=== PATIENT | female | born 1985 | race African-American/Black ===

== ENCOUNTER 2020-12-19 13:23 | Observation (INO) | payer BC, MEDICAID, SELFPAY ==
--- NOTE | 2020-12-19 17:00 | PC.NURSE ---
Dr Yanes will be in to see patient shortly.
--- NOTE | 2020-12-19 17:33 | OBADM ---
This patient, Michelle Stewart, admitted to the OB room Labor/Delivery/Recovery 118 for observation. Patient/family oriented to hospital policies and general routines including ID bracelet, bed and alarms, visiting hours, pain management, procedures, bathroom and other care routines, personal items, smoking policy, room service/diet, and visiting hours. Patient/Family are encouraged to report perceived risks to care and to ask questions if they do not understand what they are told or what they should do.
--- NOTE | 2020-12-19 18:08 | PM.OBTRLD ---
OB - Triage/Final Diagnosis Visit Information Comments/Additional reasons for admission: I have assessed the risk for this patient, Michelle Stewart, and determined that she would benefit from observation care. Final Diagnosis (1) FGR ( growth retardation): Status: Acute
== END 2020-12-19 18:15 | disposition home or self-care (01) ==
PROVIDERS: Admitting Provider Obstetrics & Gynecology; PCP Nurse Practitioner Family; Visit Provider Obstetrics & Gynecology
DX: O36.5930 Maternal care for other known or suspected poor fetal growth, third trimester, not applicable or unspecified (principal); Z3A.36 36 weeks gestation of pregnancy
CPT/HCPCS: G0378; G0379

== ENCOUNTER 2020-12-27 10:26 | Outpatient (RCR) | payer BC, SELFPAY ==
[2020-11-23 15:11] VITALS: BP 135/81; PULSE 73
[2020-11-29 12:07] VITALS: BP 108/69; PULSE 109
[2020-12-06 11:58] VITALS: BP 121/67; PULSE 70
[2020-12-12 11:42] VITALS: BP 132/70; PULSE 80
[2020-12-19 13:49] VITALS: BP 120/68; PULSE 85
--- NOTE | 2020-12-19 14:56 | PC.NURSE ---
Dr Yanes informed of BPP of 01/08 and Low umbilical cord doppler studies. Will consult M and call me back with further orders.
--- NOTE | 2020-12-19 15:04 | PC.NURSE ---
Dr Yanes phoned back, informed to discharge patient and send patient to [facility] for further testing. Informed Dr Yanes that I need an accepting MD before I can send patient to [facility]. Will call back with further orders.
--- NOTE | 2020-12-19 15:24 | PC.NURSE ---
Dr Yanes called back with further orders, he is waiting for Dr Rodrigues to call him back with a plan. Order for IV and labs ordered.
--- NOTE | 2020-12-19 15:57 | PC.NURSE ---
Patient changed to observation, see Obs adm note.
[2020-12-19 16:06] LABS: Hematocrit 24.4 % (37.0-47.0); Hemoglobin 7.3 g/dL (12.0-15.0); Mean Corpuscular HGB Conc 29.9 g/dl (32-36); Mean Corpuscular Hemoglobin 21.7 pg (26-34); Mean Corpuscular Volume 72.6 fl (80-100); Mean Platelet Volume 12.4 fl (7.4-10.4); Platelet Count Result 261 k/mm3 (150-375); Red Blood Count 3.36 M/mm3 (4.2-5.4); Red Cell Distribution Width 16.5 % (11.5-14.5); White Blood Count 10.7 K/mm3 (4.5-10.0)
[2020-12-19 16:16] LABS: Alanine Aminotransferase 16 U/L (4-35); Albumin Level 3.6 g/dL (3.5-5.1); Alkaline Phosphatase 77 U/L (38-126); Anion Gap 7 mmol/L (8-16); Aspartate Amino Transferase 34 U/L (14-36); Bilirubin,Total 0.3 mg/dL (0.2-1.3); Blood Urea Nitrogen 7 mg/dL (7-17); Calcium 9.3 mg/dL (8.4-10.2); Carbon Dioxide 20 mmol/L (22-30); Chloride 108 mmol/L (98-107); Estimated Glomerular Filt Rate > 60; Glucose 82 mg/dL (65-105); Potassium 4.1 mmol/L (3.4-5.0); Sodium 135 mmol/L (137-145)
[2020-12-20 14:40] VITALS: BP 109/75; PULSE 85
[2020-12-24 10:44] VITALS: BP 124/72; PULSE 96
--- NOTE | ~2020-12-27 | US_ITS ---
EXAMINATION: US OB BPP wo non-stress DATE: 11/29/2020 12:33 CDT INDICATION: IUGR TECHNIQUE: Real-time transabdominal obstetric ultrasound. FINDINGS: No prior studies for comparison. There is a single living fetus in vertex presentation. The placenta is anterior without placenta pre via. cardiac activity and movement is noted with a heart rate of 125 beats per minute. Biophysical profile: breathin of 2 movement: 2 of 2 tone: 2 of 2 Amniotic flud pocket: 2 of 2 Total score: 8 of 8 IMPRESSION: 1. Single living intrauterine in vertex presentation. 2: Total biophysical profile score of 8/8. Reviewed, dictated and finalized at location B.
--- NOTE | ~2020-12-27 | US_ITS ---
EXAMINATION: US OB BPP wo non-stress DATE: 11/23/2020 15:59 INDICATION: Intrauterine growth restriction during TECHNIQUE: Real-time pelvic ultrasound was performed. The interpreting radiologist was not present fo r the study. COMPARISON: None. FINDINGS: There is a single living fetus in breech presentation. The placenta is anterior. heart rate is 130 beats per minute (bpm). Amniotic fluid volume is subjectively normal. Biophysical profile performed by the technologist: breathing (30 sec sustained breathing in 30 minutes): 2 out of 2 movement (3 gross body movements in 30 minutes): 2 out of 2 tone (one episode of xjqwwtt-haviifaqu-lfsdhuc limb movement): 2 out of 2 Amniotic fluid pocket (2 cm): 2 out of 2 Total score: 8 out of 8 IMPRESSION: 1. Single living fetus in breech presentation with heart rate of 130 bpm. 2. Biophysical profile 8 out of 8. Reviewed, dictated and finalized at location A.
--- NOTE | ~2020-12-27 | US_ITS ---
EXAMINATION: US OB BPP wo non-stress DATE: 12/20/2020 12:16 INDICATION: Intrauterine growth restriction. TECHNIQUE: Real-time pelvic ultrasound was performed. COMPARISON: Ultrasound 12/19/2020 FINDINGS: There is a single living fetus in vertex presentation. The placenta is anterior. heart rate is 131 beats per minute (bpm). Biophysical profile performed by the technologist: breathing (30 sec sustained breathing in 30 minutes): 0 out of 2 movement (3 gross body movements in 30 minutes): 2 out of 2 tone (one episode of fwhekja-djsvjeufj-koccdtk limb movement): 2 out of 2 Amniotic fluid pocket (2 cm): 2 out of 2 Total score: 6 out of 8 IMPRESSION: 1. Single living fetus in vertex presentation. 2. Biophysical profile 6 out of 8. Reviewed, dictated and finalized at location A.
--- NOTE | ~2020-12-27 | US_ITS ---
EXAMINATION: US OB BPP wo non-stress DATE: 12/27/2020 12:06 INDICATION: IUGR during third trimester . TECHNIQUE: Real-time pelvic ultrasound was performed. The interpreting radiologist was not present fo r the study. COMPARISON: 12/24/2020 FINDINGS: There is a single living fetus in vertex presentation. The placenta is 141. heart rate is anter ior beats per minute (bpm). Biophysical profile performed by the technologist: breathing (30 sec sustained breathing in 30 minutes): 2 out of 2 movement (3 gross body movements in 30 minutes): 2 out of 2 tone (one episode of yioazhl-yhkjedexs-zovqhfr limb movement): 2 out of 2 Amniotic fluid pocket (2 cm): 2 out of 2 Total score: 8 out of 8 IMPRESSION: 1. Single living fetus in vertex presentation. 2. Biophysical profile 8 out of 8. Reviewed, dictated and finalized at location A.
--- NOTE | ~2020-12-27 | US_ITS ---
EXAMINATION: US OB BPP wo non-stress DATE: 12/24/2020 10:24 INDICATION: Intrauterine growth restriction. Third trimester. TECHNIQUE: Real-time pelvic ultrasound was performed. COMPARISON: Ultrasound 12/20/2020 FINDINGS: There is a single living fetus in vertex presentation. The placenta is anterior. heart rate is 128 beats per minute (bpm). Biophysical profile performed by the technologist: breathing (30 sec sustained breathing in 30 minutes): 2 out of 2 movement (3 gross body movements in 30 minutes): 2 out of 2 tone (one episode of uxyfamr-rnfkaijpc-dhyejwk limb movement): 2 out of 2 Amniotic fluid pocket (2 cm): 2 out of 2 Total score: 8 out of 8 IMPRESSION: 1. Single living fetus in vertex presentation. 2. Biophysical profile 8 out of 8. Reviewed, dictated and finalized at location B.
--- NOTE | ~2020-12-27 | US_ITS ---
EXAMINATION: 1. US OB limited w BPP 2. US umbilical doppler DATE: 12/12/2020 11:35 INDICATION: Intrauterine growth restriction. Third trimester. TECHNIQUE: Real-time pelvic ultrasound was performed. COMPARISON: Ultrasound 12/06/2020 FINDINGS: There is a single living fetus in vertex presentation. The placenta is anterior. heart rate is 133 beats per minute (bpm). The amniotic fluid index is 9.4 cm, which is normal. Biophysical profile performed by the technologist: breathing (30 sec sustained breathing in 30 minutes): 2 out of 2 movement (3 gross body movements in 30 minutes): 2 out of 2 tone (one episode of strlfqp-evxpitgiw-tztglcs limb movement): 2 out of 2 Amniotic fluid pocket (2 cm): 2 out of 2 Total score: 8 out of 8 Umbilical artery pulsed Doppler demonstrates a peak systolic to end-diastolic velocity ratio (S/D rat io) of 2.3 (5th percentile = 2.0, 95th percentile = 3.4). IMPRESSION: 1. Single living fetus in vertex presentation. 2. Biophysical profile 8 out of 8. 3. Normal umbilical artery Doppler. Reviewed, dictated and finalized at location B. IMPRESSION: 1. Single living fetus in vertex presentation. 2. Biophysical profile 8 out of 8. 3. Normal umbilical artery Doppler.
--- NOTE | ~2020-12-27 | US_ITS ---
EXAMINATION: 1. US OB BPP wo non-stress 2. US umbilical doppler DATE: 12/19/2020 14:40 INDICATION: Small for gestational age. Third trimester. TECHNIQUE: Real-time pelvic ultrasound was performed. COMPARISON: Ultrasound 12/12/2020 FINDINGS: There is a single living fetus in vertex presentation. The placenta is anterior. heart rate is 135 beats per minute (bpm). Biophysical profile performed by the technologist: breathing (30 sec sustained breathing in 30 minutes): 0 out of 2 movement (3 gross body movements in 30 minutes): 2 out of 2 tone (one episode of ioojlnj-tikyyaaqt-wmbmqgj limb movement): 2 out of 2 Amniotic fluid pocket (2 cm): 2 out of 2 Total score: 6 out of 8 Umbilical artery pulsed Doppler demonstrates a peak systolic to end-diastolic velocity ratio (S/D rat io) of 1.6 (5th percentile = 2.0, 95th percentile = 3.3). IMPRESSION: 1. Single living fetus in vertex presentation. 2. Biophysical profile 6 out of 8. 3. Abnormally low S/D ratio of the umbilical artery. Reviewed, dictated and finalized at location A. IMPRESSION: 1. Single living fetus in vertex presentation. 2. Biophysical profile 6 out of 8. 3. Abnormally low S/D ratio of the umbilical artery.
--- NOTE | ~2020-12-27 | US_ITS ---
EXAMINATION: US OB BPP wo non-stress, US umbilical doppler EXAM DATE: 12/06/2020 11:26 INDICATION: IUGR. 3rd trimester. TECHNIQUE: Pelvic obstetrical transabdominal sonogram was performed by a technologist. There are mu ltiple grayscale and Doppler images available for interpretation. Umbilical artery doppler obtained. Comparison is made to prior examination from 11/30/2019. FINDINGS: There is a single fetus identified in vertex presentation with a heart rate of 142 beats pe r minute. The placenta is located in the anterior position. There is no sonographic evidence of retr oplacental hemorrhage identified. BIOPHYSICAL PROFILE (performed by the technologist) breathing (30 sec sustained breathing in 30 minutes): 2 out of 2 movement (3 gross body movements in 30 minutes): 2 out of 2 tone (one episode of mzseqlp-flpefdbea-uucqpaz limb movement): 2 out of 2 Amniotic fluid pocket (2 cm): 2 out of 2 Total score: 8 out of 8 UMBILICAL ARTERY DOPPLER Systolic/diastolic ratios obtained as follows: Near baby: 1.9 Mid aspect: 1.9 Near Placenta: 2.3 (The 5th -- 95th percentile range is 2.0 -- 3.4). IMPRESSION: 1. Single fetus with heart rate of 142 bpm. 2. Normal biophysical profile score of 8 out of 8. 3. No elevated umbilical artery Doppler ratios. Reviewed, dictated and finalized at location B. IMPRESSION: 1. Single fetus with heart rate of 142 bpm. 2. Normal biophysical profile score of 8 out of 8. 3. No elevated umbilical artery Doppler ratios.
[2020-12-27 18:34] VITALS: BP 124/63; PULSE 74
== END 2021-01-01 11:49 | disposition home or self-care (01) ==
LOC: ANHOBOP 10:26
PROVIDERS: PCP Nurse Practitioner Family; Visit Provider Obstetrics & Gynecology
DX: O36.5930 Maternal care for other known or suspected poor fetal growth, third trimester, not applicable or unspecified (principal); Z3A.33 33 weeks gestation of pregnancy; Z3A.34 34 weeks gestation of pregnancy; Z3A.35 35 weeks gestation of pregnancy; Z3A.36 36 weeks gestation of pregnancy; Z3A.37 37 weeks gestation of pregnancy
CPT/HCPCS: 36415; 59025; 76815; 76819; 76820; 80053; 85027

== ENCOUNTER 2020-12-29 05:58 | Inpatient (IN) | payer BC, OTHER, SELFPAY ==
[2020-12-29] VITALS (138 sets, daily range): BP systolic 62–174; BP diastolic 42–131; PULSE 65–186; TEMP 36.6–37; O2SAT 84–100; BMI 44.2
--- NOTE | 2020-12-29 06:40 | LDADM ---
This patient, Michelle Stewart, was admitted to Labor/Delivery/Recovery 103 on 12/29/20 at 05:58. Plans for labor, pain management and were discussed with patient. Patient/family oriented to hospital policies and general routines including ID bracelet, bed and alarms, visiting hours, pain management, procedures, bathroom and other care routines, personal items, smoking policy, room service/diet and guest tray routines, security routines, and visiting hours. Patient/Family are encouraged to report perceived risks to care and to ask questions if they do not understand what they are told or what they should do. See OBIX for further documentation.
[2020-12-29 06:41] LABS: Basophils Absolute Auto 0.1 K/mm3 (0.0-0.1); Basophils Percent Auto 0.8 % (0.2-1.2); Eosinophils Percent Auto 0.3 % (0-4.4); Hematocrit 25.8 % (37.0-47.0); Hemoglobin 7.5 g/dL (12.0-15.0); Immature Granulocyte Absolute 0.02 K/mm3 (0.00-0.031); Immature Granulocyte Percent A 0.2 % (0-0.5); Lymphocytes Absolute Auto 1.87 K/mm3 (0.9-3.2); Lymphocytes Percent Auto 21.6 % (18.3-44.2); Mean Corpuscular HGB Conc 29.1 g/dl (32-36); Mean Corpuscular Hemoglobin 21.1 pg (26-34); Mean Corpuscular Volume 72.7 fl (80-100); Mean Platelet Volume 11.1 fl (7.4-10.4); Monocytes Absolute Auto 0.4 K/mm3 (0.1-0.6); Monocytes Percent Auto 4.7 % (2.6-8.5); Neutrophils Absolute Auto 6.3 K/mm3 (1.3-6.7); Neutrophils Percent Auto 72.4 % (45.5-73.1); Platelet Count Result 332 k/mm3 (150-375); Red Blood Count 3.55 M/mm3 (4.2-5.4); Red Cell Distribution Width 16.9 % (11.5-14.5); White Blood Count 8.7 K/mm3 (4.5-10.0)
--- NOTE | 2020-12-29 06:43 | PM.IMHP ---
H&P: HPI History of Present Illness Date/Time: 12/29/20 06:43 35 y/o F at 38weeks presents for IOL per MFM for severe IUGR 8th%efw normal dopplers and normal jeremy. c/b MTHFR, growth restriction, abnormal progesterone, subchorionic hematoma, obesity, HSV2, FAITH, anemia, CIC, and MDD. Chief Complaint: term , severe growth restriction with normal antepartum testing, group B strep positive Elective induction per Maternal- Medicine recommendation Review of Systems Review of Systems: All systems reviewed & are unremarkable except as noted in HPI and below Constitutional: Constitutional: Reports no additional constitutional complaints Eyes: Eyes: Reports no additional eye complaints ENT: Reports system reviewed and no additional complaints, except as documented Cardiovascular: Cardiovascular: Reports no additional cardiovascular complaints Respiratory: Respiratory: Reports no additional respiratory complaints Gastrointestinal: Gastrointestinal: Reports no additional gastrointestinal complaints Genitourinary: Genitourinary: Reports no additional female genitourinary complaints Musculoskeletal: Musculoskeletal: Reports no additional musculoskeletal complaints Integumentary/Breasts: Skin/Breast: Reports system reviewed and no additional complaints, except as docu Neurologic: Reports system reviewed and no additional complaints, except as documented Psychiatric: Psychiatric: Reports no additional psychiatric complaints Endocrine: Endocrine: Reports no additional endocrine complaints Hematologic/Lymphatic: Hematologic/Lymphatic: Reports no additional hematologic/lymphatic complaints Allergic/Immunologic: Allergic/Immunologic: Reports no additional allergic/immunologic complaints [facility] Past Medical History Medical History (Updated 12/29/20 @ 07:13 by Jeffrey Yanes MD) Anemia BV (bacterial vaginosis) Candidiasis of vagina Constipation Degenerative disc disease Depressive disorder FGR ( growth retardation) FAITH (generalized anxiety disorder) GBS (group B streptococcus) infection Heterozygous MTHFR mutation [id number] HSV (herpes simplex virus) infection Obesity Sleep apnea Vaginal delivery 11-23-2005, 40 wks 1. M, 8lbs 2oz, Standard Vaginal Delivery Surgical History Surgical History (Updated 12/29/20 @ 07:15 by Jeffrey Yanes MD) Gastric bypass status for obesity Gastric bypass : 06-03-2015 Family History Family History (Updated 12/29/20 @ 07:16 by Jeffrey Yanes MD) Mother Asthma Other Depression Diabetes mellitus Heart disease Hypertension Social History Social History (Updated 12/29/20 @ 07:17 by Jeffrey Yanes MD) Smoking status: Never smoker Second hand tobacco smoke exposure: No Alcohol intake: never Substance use: never Substance use type: does not use Living arrangements: with family Occupation/Education: occupation Gender identity (if verbalized by the patient): Female Sexual Orientation (if Verbalized by the Patient): Straight or Heterosexual Spiritual care concerns: No Agree to blood products: Yes Meds Home Medications and Allergies Home Medications Medication Instructions Recorded Confirmed Type Linzess 290 mcg PO BID 12/12/20 12/19/20 History PNV cmb#95-ferrous fumarate-FA 1 tablet PO DAILY 12/12/20 12/19/20 History [] acyclovir 800 mg PO DAILY 12/12/20 12/19/20 History ferrous gluconate 324 mg PO DAILY 12/19/20 12/19/20 History Allergies Allergy/AdvReac Type Severity Reaction Status Date / Time Vitamin B12 Allergy Mild Rash Uncoded 12/12/20 10:43 Exam Const: General: cooperative, healthy appearing, comfortable, no acute distress, well developed, alert, awake and Physically active Nutritional Appearance: average body habitus, well nourished and obese Orientation/consciousness: patient oriented x3 HENMT: Head: normal to inspection Eyes: General: appearance normal, b
[2020-12-29 07:07] LABS: Hypochromasia 2+ (NORMAL); Ovalocytes 2+ (NORMAL); Platelet Estimate Adequate (Adequate)
[2020-12-29] MEDS: DINOPROSTONE 10 MG VAG INSERT VAGINAL ×2 (07:16→12:15)
[2020-12-29] MEDS: AMPICILLIN 2 GM/NS 100 ML 2 GM/100 ML BAG IVPB (07:17)
[2020-12-29] MEDS: LACTATED RINGERS 1,000 ML 125 ML IV CONT ×3 (07:17→18:50)
--- NOTE | 2020-12-29 07:27 | WPDHPUPDATE1 ---
History and Physical Update Update Date/Time: 12/29/20 07:27 History and Physical has been reviewed, including an updated exam of the patient. There are NO changes in the patient's condition. Risks, benefits, and alternatives have been discussed and questions answered. Patient agrees to proceed with procedure. 35 y/o F at 38weeks presents for IOL per [facility] for severe IUGR 8th%efw normal dopplers and normal jeremy. c/b MTHFR, growth restriction, abnormal progesterone, subchorionic hematoma, obesity, HSV2, FAITH, anemia, CIC, and MDD. Chief Complaint: term , severe growth restriction with normal antepartum testing, group B strep positive Elective induction per Maternal- Medicine recommendation
--- NOTE | 2020-12-29 07:28 | P.HP_ITS ---
Obstetrics - Admit Note Admission Note: record reviewed. No pertinent additions to the history and/or any subsequent changes in the physical findings that are not consistent with the expected course of the were found. Additions to the history and/or subsequent changes in the physical findings follow. None. 35 y/o F at 38weeks presents for IOL per [facility] for severe IUGR 8th%efw normal dopplers and normal jeremy. c/b MTHFR, growth restriction, abnormal progesterone, subchorionic hematoma, obesity, HSV2, FAITH, anemia, CIC, and MDD. Chief Complaint: term , severe growth restriction with normal antepartum testing, group B strep positive Elective induction per Maternal- Medicine recommendation I explained her condition procedure and risks involved in the risk of shoulder dystocia and hemorrhage as well as a maternal or indications for delivery with risks involved including but not limited to bleeding infection injury to bladder bowel baby pelvic vessels DVT pneumonia wound infection UTI endometritis and the risk of anesthesia and she agrees to proceed.
--- NOTE | 2020-12-29 08:51 | WPDANESEPP ---
Anes - Eval Pre Procedure Procedure: labor epidural Date/Time: 12/29/20 08:51 Surgeon: Joaquín Preop Diagnosis: Pain during labor Pre Op Diagnosis: Induction of Labor Patient Data Age: 35 Gender: F Height: 5 ft 4 in Weight: 117 kg Last Vital Signs Temp 36.6 C 12/29/20 07:30 Pulse 69 12/29/20 08:31 BP 126/61 12/29/20 08:31 Allergies Allergy/AdvReac Type Severity Reaction Status Date / Time Vitamin B12 Allergy Mild Rash Uncoded 12/12/20 10:43 Home Medications Medication Instructions Recorded Confirmed Type Linzess 290 mcg PO BID 12/12/20 12/29/20 History PNV cmb#95-ferrous fumarate-FA 1 tablet PO DAILY 12/12/20 12/29/20 History [] acyclovir 800 mg PO DAILY 12/12/20 12/29/20 History ferrous gluconate 324 mg PO DAILY 12/19/20 12/29/20 History Laboratory Tests 12/29/20 12/29/20 12/29/20 06:21 06:21 06:22 WBC 8.7 K/mm3 K/mm3 (4.5-10.0) RBC 3.55 M/mm3 L M/mm3 (4.2-5.4) Hgb 7.5 g/dL L g/dL (12.0-15.0) Hct 25.8 % L % (37.0-47.0) MCV 72.7 fl L fl (80-100) MCH 21.1 pg L pg (26-34) MCHC 29.1 g/dl L g/dl (32-36) RDW 16.9 % H % (11.5-14.5) Plt Count 332 k/mm3 k/mm3 (150-375) MPV 11.1 fl H fl (7.4-10.4) Immature Gran % (Auto) 0.2 % % (0-0.5) Neut % (Auto) 72.4 % % (45.5-73.1) Lymph % (Auto) 21.6 % % (18.3-44.2) Harding % (Auto) 4.7 % % (2.6-8.5) Eos % (Auto) 0.3 % % (0-4.4) Baso % (Auto) 0.8 % % (0.2-1.2) Lymph # (Auto) 1.87 K/mm3 K/mm3 (0.9-3.2) Harding # (Auto) 0.4 K/mm3 K/mm3 (0.1-0.6) Eos # (Auto) 0.0 K/mm3 K/mm3 (0-0.3) Baso # (Auto) 0.1 K/mm3 K/mm3 (0.0-0.1) Abs Immat Gran (auto) 0.02 K/mm3 K/mm3 (0.00-0.031) Absolute Neuts (auto) 6.3 K/mm3 K/mm3 (1.3-6.7) Absolute Nucleated RBC 0.0 K/mm3 K/mm3 (0.0-0.012) Nucleated RBC % 0.0 % % (0.0-0.2) Platelet Estimate Adequate (Adequate) Hypochromasia 2+ (NORMAL) Ovalocytes 2+ (NORMAL) RPR Pending Blood Type B Positive Antibody Screen Negative : gestational age (REESE 01/11/21) Patient hx anesthesia problems: none Family hx anesthesia problems: none PMFSH Past Medical History Medical History (Updated 12/29/20 @ 07:13 by Jeffrey Yanes MD) Anemia BV (bacterial vaginosis) Candidiasis of vagina Constipation Degenerative disc disease Depressive disorder FGR ( growth retardation) FAITH (generalized anxiety disorder) GBS (group B streptococcus) infection Heterozygous MTHFR mutation [id number] HSV (herpes simplex virus) infection Obesity Sleep apnea Vaginal delivery 11-23-2005, 40 wks 1. M, 8lbs 2oz, Standard Vaginal Delivery Surgical History Surgical History (Updated 12/29/20 @ 07:15 by Jeffrey Yanes MD) Gastric bypass status for obesity Gastric bypass : 06-03-2015 Family History Family History (Updated 12/29/20 @ 07:16 by Jeffrey Yanes MD) Mother Asthma Other Depression Diabetes mellitus Heart disease Hypertension Social History Social History (Updated 12/29/20 @ 07:17 by Jeffrey Yanes MD) Smoking status: Never smoker Second hand tobacco smoke exposure: No Alcohol intake: never Substance use: never Substance use type: does not use Living arrangements: with family Occupation/Education: occupation Gender identity (if verbalized by the patient): Female Sexual Orientation (if Verbalized by the Patient): Straight or Heterosexual Spiritual care concerns: No Agree to blood products: Yes Exam Day of Procedure 12/29/20 08:51 Patient weight: morbidly obese Neurological: alert and oriented
[2020-12-29] MEDS: AMPICILLIN 1 GM/NS 50 ML 1 GM/50 ML BAG IVPB ×3 (11:49→19:25)
[2020-12-29] MEDS: fentaNYL CITRATE INJ (*CRX) 100 MCG/2 ML VIAL IV PUSH ×3 (12:16→16:10)
[2020-12-29] MEDS: TERBUTALINE SULFATE 1 MG/ML VIAL 0.25 MG SUB-Q (18:12)
--- NOTE | 2020-12-29 18:39 | PM.OBPNLAB ---
Pain Control Date/time seen: 12/29/20 18:39 Pain control: tolerating well Pelvic Exam Dilation (cm): 5 Effacement (%): 90 station: -2 Amniotic membrane status: Ruptured (SROM clear) Contractions Monitor mode: Internal Contraction frequency: 2 Contraction duration: 45 Contraction pattern: Regular Contraction phase: Contraction Contraction intensity: Strong/Firm Status status: Category l Assessment and Plan Assessment: active labor and induction ongoing Plan: continuous present management Comments: epidural anesthesia terb given for tachysystole x1 after cervidil removed
[2020-12-29] MEDS: OXYTOCIN 30 UNITS/NS 500 ML 30 UNITS/500 ML BAG IV CONT ×2 (20:41→22:49)
--- NOTE | 2020-12-29 20:57 | PM.OBPNLAB ---
Pain Control Date/time seen: 12/29/20 20:57 Pelvic Exam Dilation (cm): 6 Effacement (%): 90 station: -2 Amniotic membrane status: Ruptured (SROM clear) Contractions Monitor mode: Internal Contraction frequency: 2 Contraction pattern: Regular Contraction phase: Contraction Contraction intensity: Strong/Firm Status status: Category l Assessment and Plan Assessment: active labor Plan: continuous present management
--- NOTE | 2020-12-29 22:23 | PM.OBPRVD ---
OB - Delivery Note Procedure Delivery date: 12/29/20 Procedure: Normal spontaneous vertex vaginal delivery a viable male infant and placenta events: Labor Induction Induction method: per misoprostol protocol Delivery monitor: external FHT Route of delivery: Episiotomy description: None Laceration Description: None Specimen: Yes (Placenta, cord blood, cord blood gases) Quantitative Blood Loss (ml): 25 Anesthesia type: Epidural Disposition: floor Complications: None Narrative: Normal spontaneous vertex vaginal delivery a viable male infant over an intact perineum normal delivery of anterior shoulder and baby placed on maternal abdomen cord clamped and cut spontaneous respirations and cry scores 8 9 weight 6 lb 5 oz taken to the nursery in stable condition. Placenta delivered intact three-vessel cord. Cord gases cord blood obtained. Uterus contracted well Pitocin given intravenously. Cervix vagina examined blood clots removed from the intrauterine cavity counts correct no sponges left in the vagina. Rectal sphincter intact. Baby Date of : 12/29/20 Time of : 22:14 Weeks of gestation at delivery: 38 gender: Male Weight (pounds): 6 Weight (ounces): 5 presentation: vertex position: Left Occiput Anterior Placenta delivery description: Spontaneous and Normal Configuration cord vessel description: 3 Vessels score one minute: 8 score five minutes: 9 Narrative: Normal transition taken to the nursery in stable condition normal exam.
--- NOTE | 2020-12-29 22:31 | PM.OBDSVD ---
DS: Admitting Diagnosis Admitting Diagnosis Admitting Diagnosis: Term growth restriction Elective induction of labor HSV GBS MTHFR Depression Obesity DS: Discharge Diagnosis Discharge Diagnosis (1) Term delivered: Code(s): O80 - Encounter for full-term uncomplicated delivery Status: Acute (2) Elective induction of labor planned: Status: Acute (3) FGR ( growth retardation): Status: Acute (4) GBS (group B streptococcus) infection: Code(s): A49.1 - Streptococcal infection, unspecified site Status: Acute (5) Heterozygous MTHFR mutation C677T: Code(s): Z15.89 - Genetic susceptibility to other disease Status: Acute (6) Depressive disorder: Code(s): F32.9 - Major depressive disorder, single episode, unspecified Status: Acute OB - DS: Summary Hospital Course Time spent discussing smoking cessation with patient: 3 to 10 minutes OB Procedures : Ultrasound OB Procedures Intrapartum: Spontaneous Vag Delivery OB Procedures: : None Peripartum Data Delivery Method: Natural Vaginal Laceration Description: None Episiotomy description: None complications: none Kiana 1: Gender: Male Disposition of : home Status at Discharge Functional status at discharge: independent ambulation Overall status at discharge: patient is back to baseline Time Spent with Patient Time attestation: Total time spent providing and/or coordinating discharge services: Time spent: Less than 30 minutes Exam Const: General: cooperative, healthy appearing, comfortable, no acute distress, well developed, alert, awake and Physically active Nutritional Appearance: average body habitus and obese Orientation/consciousness: patient oriented x3 Limitations: no limitations HENMT: Head: normal to inspection Eyes: General: appearance normal, both eyes and all related structures Neck: Neck: normal visual inspection Chest: Chest palpation & inspection: normal inspection of the chest Resp: Effort & Inspection: normal respiratory effort Cardio: Rate: regular rate Rhythm: regular rhythm GI: Inspection: normal to inspection GI Palp: Yes Soft to palpation Auscultation: normal bowel sounds : External Female Exam: normal external appearance Bimanual exam- vagina & uterus: non-tender Back/Spine/Pelvis: Back: no CVA tenderness Skin: General skin exam: normal color Neuro: General: patient oriented x3, tone normal, moves all extremities and no focal motor deficits Extrem: General: normal to inspection and full ROM Psych: Appearance: grossly normal Mental Status: mental status grossly normal Speech and movement: Normal speech and movement present Affect: normal affect Attitude: cooperative Thought process: Normal thought process present Thought content: Yes Normal thought content present Insight: Good insight present (Psych) Judgement: Good judgement present (Psych) DS: Data Data Completed and Pending Labs on day of discharge: Labs from last 24 hours 12/29/20 12/29/20 12/29/20 06:22 06:21 06:21 WBC 8.7 RBC 3.55 L Hgb 7.5 L Hct 25.8 L MCV 72.7 L MCH 21.1 L MCHC 29.1 L RDW 16.9 H Plt Count 332 MPV 11.1 H Immature Gran % (Auto) 0.2 Neut % (Auto) 72.4 Lymph % (Auto) 21.6 [place] % (Auto) 4.7 Eos % (Auto) 0.3 Baso % (Auto) 0.8 Lymph # (Auto) 1.87 [place] # (Auto) 0.4 Eos # (Auto) 0.0 Baso # (Auto) 0.1 Abs Immat Gran (auto) 0.02 Absolute Neuts (auto) 6.3 Absolute Nucleated RBC 0.0 Nucleated RBC % 0.0 Platelet Estimate Adequate Hypochromasia 2+ Ovalocytes 2+ RPR Pending Blood Type B Positive Antibody Screen Negative Discharge Plan Discharge Attending physician on discharge: Jeffrey Yanes Discharging Clinician: Jeffrey Yanes Anticipated Discharge Date/Time: 12/31/20 10:27 Sandra
[2020-12-30] VITALS (9 sets, daily range): BP systolic 103–133; BP diastolic 61–80; PULSE 66–122; RESP 18–34; TEMP 36.4–36.9
[2020-12-30] MEDS: WITCH HAZEL 40 PADS 1 PAD TOPICAL ×2 (00:58→15:27)
[2020-12-30] MEDS: BENZOCAINE 20% AER SPR (*SP) 56 GM CAN 1 SPRAY TOPICAL ×2 (00:58→15:27)
--- NOTE | 2020-12-30 01:15 | PC.NURSE ---
Patient transferred to post room #288 via wheelchair. Support person present. Oriented to unit, room, information board, rooming in, admission packet and security measures. Patient verbalizes understanding.
[2020-12-30] MEDS: IBUPROFEN 600 MG TABLET PO ×4 (01:30→23:56)
[2020-12-30 06:21] LABS: Hematocrit 19.1 % (37.0-47.0); Hemoglobin 5.6 g/dL (12.0-15.0)
--- NOTE | 2020-12-30 07:33 | P.PNOB_ITS ---
OB - PN: Subj Subjective Date/time seen: 12/30/20 07:33 Patient comments: no complaints, pain well controlled and tolerating diet [place] baby status: doing well [place] feeding status: breast and bottle feeding OB - PN: Obj Data Labs CBC & Chem 7: 12/30/20 05:59 Labs: Laboratory Results - last 24 hr 12/29/20 12/30/20 06:21 05:59 Hgb 5.6 L* Hct 19.1 L* Blood Type B Positive Antibody Screen Negative OB - PN A/P Assessment and Plan (1) Term delivered: Code(s): O80 - Encounter for full-term uncomplicated delivery Status: Acute (2) Anemia: Code(s): D64.9 - Anemia, unspecified Status: Acute Plan day: 1 Plan: routine care, discharge home and follow up 6 weeks Comments: iron Time Spent With Patient Time: Total time spent is greater than 50% in coordination of care (as documented) at patient's floor/unit and/or counseling patient: Time with patient: less than 15 minutes Review of Systems Review of Systems: All systems reviewed & are unremarkable except as noted in HPI and below Exam Const: General: cooperative, healthy appearing, comfortable, no acute distress, well developed, alert, awake and Physically active Nutritional Appearance: average body habitus and obese Orientation/consciousness: patient oriented x3 Limitations: no limitations HENMT: Head: normal to inspection Eyes: General: appearance normal, both eyes and all related structures Neck: Neck: normal visual inspection Chest: Chest palpation & inspection: normal inspection of the chest Resp: Effort & Inspection: normal respiratory effort Auscultation: clear to auscultation bilaterally Cardio: Rate: regular rate Rhythm: regular rhythm GI: Inspection: normal to inspection GI Palp: Yes Soft to palpation Auscultation: normal bowel sounds : External Female Exam: normal external appearance Back/Spine/Pelvis: Back: no CVA tenderness Skin: General skin exam: normal color Neuro: General: patient oriented x3, gait normal, tone normal and moves all extremities Extrem: General: normal to inspection Psych: Appearance: grossly normal Mental Status: mental status grossly normal Speech and movement: Normal speech and movement present Affect: normal affect Attitude: cooperative Thought process: Normal thought process present Thought content: Yes Normal thought content present Insight: Good insight present (Psych) Judgement: Good judgement present (Psych)
[2020-12-30] MEDS: POLYSACCHARIDE IRON COMPLEX 150 MG CAPSULE PO ×2 (07:47→15:27)
[2020-12-30] MEDS: DOCUSATE SODIUM 100 MG CAPSULE PO ×2 (07:47→15:27)
[2020-12-30] MEDS: MULTIVIT/MIN/PREN/FOL AC/IRON TABLET 1 TAB PO (07:47)
[2020-12-30] MEDS: LANOLIN (LANSINOH) 7.5 GM CREAM 1 APPLIC TOPICAL (07:49)
[2020-12-30] MEDS: ACYCLOVIR 400 MG TABLET 800 MG PO (07:51)
--- NOTE | 2020-12-30 13:07 | WPDANLDPN2 ---
Anes-Prog Note L&D Date/Time: 12/30/20 13:07 Comfortable throughout: labor and delivery Neuraxial method: epidural Epidural/Spinal procedure site: clean & non-tender Neuro status: Neuro function grossly intact. Cardiovascular status: normal Respiratory status: normal Airway patency: baseline Mental status: baseline Post-Op hydration status: normal Vital Signs: Last Vital Signs Temp 36.7 C 12/30/20 12:00 Pulse 76 12/30/20 12:00 Resp 20 12/30/20 12:00 BP 110/80 12/30/20 12:00 Pulse Ox 100 12/29/20 22:09 Pain score (VAS): 0 I/O: Intake & Output 12/29/20 12/30/20 12/30/20 23:59 07:59 15:59 Intake Total 1500 Balance 1500 Post-procedural complaints: none Patient feedback: Patient satisfied with anesthetic care.
[2020-12-30] MEDS: ACETAMINOPHEN 325 MG TABLET 650 MG PO (19:25)
--- NOTE | 2020-12-31 02:04 | PC.NURSE ---
12/30/2020 at 2200 Patient viewed the discharge video Mother & Baby Care, The First Two Weeks . Patient was given the opportunity and encouraged to ask questions. Patient verbalized understanding of information shared and has been given the mother/baby guide for home reference.
[2020-12-31] MEDS: IBUPROFEN 600 MG TABLET PO (07:30)
[2020-12-31] MEDS: WITCH HAZEL 40 PADS 1 PAD TOPICAL (07:44)
[2020-12-31] MEDS: POLYSACCHARIDE IRON COMPLEX 150 MG CAPSULE PO (07:45)
[2020-12-31] MEDS: MULTIVIT/MIN/PREN/FOL AC/IRON TABLET 1 TAB PO (07:45)
[2020-12-31] MEDS: BENZOCAINE 20% AER SPR (*SP) 56 GM CAN 1 SPRAY TOPICAL (07:45)
[2020-12-31 08:00] VITALS: BP 112/66; PULSE 69; RESP 18; TEMP 36.3
--- NOTE | 2020-12-31 08:00 | PC.NURSE ---
Patient viewed the discharge video Mother & Baby Care, The First Two Weeks . Patient was given the opportunity and encouraged to ask questions. Patient verbalized understanding of information shared and has been given the mother/baby guide for home reference.
[2020-12-31 08:02] LABS: Rapid Plasma Reagin Non-Reactive (NonReactive)
[2020-12-31] MEDS: ACYCLOVIR 400 MG TABLET 800 MG PO (08:36)
--- NOTE | 2020-12-31 10:30 | PC.NURSE ---
Self care and infant care discharge instructions given including follow up visit date and time. Mother verbalized understanding. No questions or concerns verbalized. MOther anxious for discharge.
[2021-01-02 08:51] VITALS: BP 139/70; PULSE 80; RESP 20; TEMP 36.7; O2SAT 100
== END 2020-12-31 12:30 | disposition home or self-care (01) | DRG 806 ==
LOC: ANHLDR 22:36 → ANHOB2 12-30 01:50
PROVIDERS: Admitting Provider Obstetrics & Gynecology; PCP Nurse Practitioner Family; Visit Provider Obstetrics & Gynecology
DX: O99.284 Endocrine, nutritional and metabolic diseases complicating childbirth (principal); E72.12 Methylenetetrahydrofolate reductase deficiency; Z37.0 Single live birth; O98.52 Other viral diseases complicating childbirth; O36.5930 Maternal care for other known or suspected poor fetal growth, third trimester, not applicable or unspecified; O99.824 Streptococcus B carrier state complicating childbirth; O76 Abnormality in fetal heart rate and rhythm complicating labor and delivery; B00.9 Herpesviral infection, unspecified; O99.214 Obesity complicating childbirth; E66.9 Obesity, unspecified; Z3A.38 38 weeks gestation of pregnancy
CPT/HCPCS: 36415; 84112; 85014; 85018; 85025; 86592; 86850; 86900; 86901; 88307; A9270; J0290; J2590; J2795; J3010; J3105; J7120

== ENCOUNTER → 2021-03-26 03:11 | Outpatient (CLI) | payer BC, MEDICAID, SELFPAY ==
[2021-03-26 19:41] LABS: SARS-CoV-2 RNA PCR Positive
== END ==
PROVIDERS: PCP Nurse Practitioner Family; Visit Provider Obstetrics & Gynecology
DX: U07.1 COVID-19 (principal)
CPT/HCPCS: C9803; U0003; U0005

== ENCOUNTER 2022-01-09 15:47 | Observation (INO) | payer BC, MEDICAID, SELFPAY ==
[2022-01-09] VITALS (9 sets, daily range): BP systolic 114–141; BP diastolic 59–80; PULSE 58–92; RESP 16–18; TEMP 36.2–36.4; O2SAT 97–100; BMI 45.2
[2022-01-09 16:49] LABS: Alanine Aminotransferase 22 U/L (6-35); Alkaline Phosphatase 67 U/L (38-126); Anion Gap 5 mmol/L (8-16); Aspartate Amino Transferase 33 U/L (14-36); Bilirubin,Total < 0.1 mg/dL (0.2-1.3); Blood Urea Nitrogen 12 mg/dL (7-17); Calcium 8.5 mg/dL (8.4-10.2); Carbon Dioxide 25 mmol/L (22-30); Chloride 108 mmol/L (98-107); Estimated CRCL calculation 96 ml/min; Estimated Glomerular Filt Rate > 60; Glucose 89 mg/dL (65-110); Potassium 4.5 mmol/L (3.4-5.0); Sodium 138 mmol/L (137-145)
[2022-01-09 17:17] LABS: Basophils Absolute Auto 0.1 K/mm3 (0.0-0.1); Basophils Percent Auto 1.2 % (0.2-1.2); Eosinophils Absolute Auto 0.1 K/mm3 (0-0.3); Eosinophils Percent Auto 1.1 % (0-4.4); Hematocrit 28.1 % (37.0-47.0); Hemoglobin 7.4 g/dL (12.0-15.0); Immature Granulocyte Absolute 0.03 K/mm3 (0.00-0.031); Immature Granulocyte Percent A 0.4 % (0-0.5); Lymphocytes Absolute Auto 2.27 K/mm3 (0.9-3.2); Lymphocytes Percent Auto 30.7 % (18.3-44.2); Mean Corpuscular HGB Conc 26.3 g/dl (32-36); Mean Corpuscular Hemoglobin 19.1 pg (26-34); Mean Corpuscular Volume 72.6 fl (80-100); Mean Platelet Volume 10.4 fl (7.4-10.4); Monocytes Absolute Auto 0.5 K/mm3 (0.1-0.6); Monocytes Percent Auto 6.4 % (2.6-8.5); Neutrophils Absolute Auto 4.5 K/mm3 (1.3-6.7); Neutrophils Percent Auto 60.2 % (45.5-73.1); Platelet Count Result 619 k/mm3 (150-375); Red Blood Count 3.87 M/mm3 (4.2-5.4); Red Cell Distribution Width 19.9 % (11.5-14.5); White Blood Count 7.4 K/mm3 (4.5-10.0)
[2022-01-09 17:47] LABS: Hypochromasia 1+ (NORMAL); Ovalocytes 2+ (NORMAL); Platelet Estimate Increased (Adequate)
--- NOTE | 2022-01-09 18:49 | ED.GENADULT ---
HPI - General Adult General Chief complaint: Unspecified Stated complaint: abnormal labs Time Seen by Provider: 01/09/22 18:30 History of Present Illness HPI narrative: Pt has a history of anemia in past. Pt says she has been feeling weak and getting SOB last before so she had her doctor order outpatient cbc and her hb was low so her PCP sent her to ER. Pt denies black stools or heavy menses. Related Data Home Medications Medication Instructions Recorded Confirmed acyclovir 800 mg tablet 800 mg PO DAILY 12/12/20 01/09/22 linaclotide 290 mcg capsule 290 mcg PO BID PRN Constipation 12/12/20 01/09/22 (Linzess) vit no.95-ferrous 1 tablet PO DAILY 12/12/20 01/09/22 fumarate 28 mg-folic acid 800 mcg tablet () ferrous gluconate 324 mg (36 mg 324 mg PO DAILY 12/19/20 01/09/22 iron) tablet bupropion HCl 150 mg tablet,12 hr 150 mg PO DAILY 03/26/21 01/09/22 sustained-release Allergies Allergy/AdvReac Type Severity Reaction Status Date / Time cyanocobalamin (vitamin B12) Allergy Mild Rash Verified 01/09/22 19:23 Review of Systems Review of Systems: All systems reviewed & are unremarkable except as noted in HPI and below PMFSH Past Medical History Medical History (Updated 01/09/22 @ 19:10 by Ubaldo Cárdenas III, DO) Anemia BV (bacterial vaginosis) Candidiasis of vagina Constipation Degenerative disc disease Depressive disorder FGR ( growth retardation) FAITH (generalized anxiety disorder) GBS (group B streptococcus) infection Heterozygous MTHFR mutation C677T HSV (herpes simplex virus) infection Obesity Sleep apnea Vaginal delivery 11-23-2005, 40 wks 1. M, 8lbs 2oz, Standard Vaginal Delivery Surgical History Surgical History (Updated 12/29/20 @ 07:15 by Jeffrey Yanes MD) Gastric bypass status for obesity Gastric bypass : 06-03-2015 Family History Family History Mother Asthma Other Depression Diabetes mellitus Heart disease Hypertension Social History Social History (Updated 12/29/20 @ 07:17 by Jeffrey Yanes MD) Smoking status: Never smoker Second hand tobacco smoke exposure: No Alcohol intake: current Drinks per week: 1 Substance use: never Substance use type: does not use Gender identity (if verbalized by the patient): Female Sexual Orientation (if Verbalized by the Patient): Straight or Heterosexual Spiritual care concerns: No Agree to blood products: Yes Exam Const: General: cooperative and healthy appearing Orientation/consciousness: patient oriented x3 Limitations: no limitations HENMT: Head: normal to inspection Neck: Neck: normal visual inspection Chest: Chest palpation & inspection: normal inspection of the chest Resp: Effort & Inspection: normal respiratory effort Auscultation: clear to auscultation bilaterally Cardio: Rate: regular rate Rhythm: regular rhythm GI: Inspection: normal to inspection GI Palp: Yes Soft to palpation Percussion: Yes normal to percussion Auscultation: normal bowel sounds Skin: General skin exam: normal color Neuro: General: patient oriented x3 Speech: normal speech Gait exam (Neuro): Normal gait present Motor exam (neuro): 5/5 motor strength present throughout Coordination: [id number] test normal Extrem: General: normal to inspection and full ROM Psych: Appearance: grossly normal Mental Status: mental status grossly normal Speech and movement: Normal speech and movement present Affect: normal affect Attitude: cooperative Course Vital Signs Vital signs: Vital Signs Temperature 97.1 F L 01/09/22 16:08 Pulse Rate 74 01/09/22 16:08 Respiratory Rate 18 01/09/22 16:08 Blood Pressure 129/68 01/09/22 16:08 Pulse Oximetry 100 01/09/22 16:08 Oxygen Delivery Room Air 01/09/22 16:08 Temperature 97.4 F L 01/09/22 21:42 Pulse Rate 63 01/09/22 21:42 Respiratory Rate 16 01/09/22
--- NOTE | 2022-01-09 19:28 | PC.NURSE ---
Patient report given to UJAN ANTONIO Medrano. All questions answered and care of patient transferred.
--- NOTE | 2022-01-09 19:37 | PC.NURSE ---
PT signed blood consent. Now with paper chart.
[2022-01-09] MEDS: SODIUM CHLORIDE 0.9% IV 250 ML 30 ML IV CONT (20:21)
[2022-01-09] MEDS: TUBING, BLOOD PLUM PUMP TUBING 1 EACH XX (20:32)
--- NOTE | 2022-01-09 21:45 | ADMGEN ---
This patient, Michelle Stewart, was admitted to Medical Room 242-01 at 2140. Patient/family oriented to hospital policies and general routines including ID bracelet, bed and alarms, visiting hours, pain management, procedures, bathroom and other care routines, personal items, smoking policy, room service/diet, and visiting hours. Information on how to activate the Rapid Response Team has been discussed. Patient/Family are encouraged to report perceived risks to care and to ask questions if they do not understand what they are told or what they should do.
[2022-01-10 00:27] VITALS: BP 121/54; PULSE 58; RESP 21; TEMP 36.1; O2SAT 100
[2022-01-10 01:22] VITALS: BP 126/69; PULSE 72; RESP 21; TEMP 36.2; O2SAT 100
[2022-01-10 06:00] VITALS: BP 106/58; PULSE 51; RESP 21; TEMP 36.2; O2SAT 100
[2022-01-10 06:17] LABS: Hematocrit 30.3 % (37.0-47.0); Hemoglobin 8.6 g/dL (12.0-15.0); Mean Corpuscular HGB Conc 28.4 g/dl (32-36); Mean Corpuscular Hemoglobin 21.1 pg (26-34); Mean Corpuscular Volume 74.4 fl (80-100); Mean Platelet Volume 10.4 fl (7.4-10.4); Platelet Count Result 514 k/mm3 (150-375); Red Blood Count 4.07 M/mm3 (4.2-5.4); Red Cell Distribution Width 20.8 % (11.5-14.5); White Blood Count 5.4 K/mm3 (4.5-10.0)
[2022-01-10 07:52] LABS: Immature Reticulocyte Fraction 23.1 % (3.0-15.9); Reticulocyte Hemoglobin Conten 20.7 pg (28.2-35.7); Reticulocyte Percent 0.93 % (0.7-4.3); Reticulocytes Absolute 0.04 B/L (32.2-175.7)
[2022-01-10 08:08] LABS: Lactate Dehydrogenase 500 U/L (313-618)
[2022-01-10 09:14] LABS: Iron 123 ug/dL (37-170)
--- NOTE | 2022-01-10 09:23 | PM.SD2 ---
Same Day Admit/Disch: HPI History of Present Illness Chief complaint: anemia Narrative: Michelle Stewart is a 36 year old female with significant medical history of iron defeciency anemia, obesity s/p gastric bypass surgery, sleep apnea, depression and generalized anxiety disorder. She presented to the ER for evaluation of shortness of breath, weakness and lightheadedness. She reports these symptoms were ongoing for approximately 1 week. She had labs drawn by her primary care provider and was directed to the ER for low blood counts. She denies c/o chest pain, abdominal pain, hematemesis, melena, hematechezia, hematuria or heavy menstrual bleeding. She reports recently starting iron tablets and taking an vitamin with iron. She states she is not always consistent with taking her iron pills. She also endorses long-standing issues with anemia. She denies known personal or family history of sickle cell disease or thalassemia. In the ED, her vitals were stable. Lab work was significant for hemoglobin 7.4, but otherwise normal CBC and chemistry. The patient was referred for observation and management of symptomatic anemia. [facility] Past Medical History Medical History Anemia BV (bacterial vaginosis) Candidiasis of vagina Constipation Degenerative disc disease Depressive disorder FGR ( growth retardation) FAITH (generalized anxiety disorder) GBS (group B streptococcus) infection Heterozygous MTHFR mutation C677T HSV (herpes simplex virus) infection Obesity Sleep apnea Vaginal delivery 11-23-2005, 40 wks 1. M, 8lbs 2oz, Standard Vaginal Delivery Surgical History Surgical History Gastric bypass status for obesity Gastric bypass : 06-03-2015 Family History Family History Mother Asthma Other Depression Diabetes mellitus Heart disease Hypertension Social History Social History (Updated 01/10/22 @ 17:17 by Hanh Agudelo APRN) Social History: Works 2 jobs 5-6 days per week, 12 hour shifts. Smoking status: Never smoker Second hand tobacco smoke exposure: No Alcohol intake: current Drinks per week: 1 Substance use: never Substance use type: does not use Gender identity (if verbalized by the patient): Female Sexual Orientation (if Verbalized by the Patient): Straight or Heterosexual Spiritual care concerns: No Agree to blood products: Yes Same Day Admit/Disch: Med Pre-admit Medications Home Medications Medication Instructions Recorded Confirmed Type acyclovir 800 mg tablet 800 mg PO DAILY 12/12/20 01/09/22 History linaclotide 290 mcg capsule 290 mcg PO BID PRN Constipation 12/12/20 01/09/22 History (Linzess) vit no.95-ferrous 1 tablet PO DAILY 12/12/20 01/09/22 History fumarate 28 mg-folic acid 800 mcg tablet () ferrous gluconate 324 mg (36 mg 324 mg PO DAILY 12/19/20 01/09/22 History iron) tablet bupropion HCl 150 mg tablet,12 hr 150 mg PO DAILY 03/26/21 01/09/22 History sustained-release Exam Narrative: General:?No acute distress. Obese adult female lying in bed. No oxygen. HEENT:?Normocephalic. Atraumatic.?PERRL, EOMI.? Sclerae anicteric. Neck:??Supple. No obvious JVD. Respiratory:?RR regular and unlabored. Lung sounds clear to auscultation bilaterally. Cardiovascular:??Regular rate and rhythm with S1-S2. No murmurs, gallops or rubs. Gastrointestinal:??Abdomen is soft, obese, nontender, and nondistended with positive bowel sounds. No organomegaly. Skin:??Warm and dry. Normal for ethnicity. No cyanosis. No rashes or open wounds. Extremities:??No cyanosis or clubbing. Trace benjamin ankle edema bilaterally. Musculoskeletal:?No deformity the right hip, knee, or ankle. Mild swelling of the right prepatellar area. Neurological:??AOx4. Cranial nerves 2-12 grossly intact. Moves all
[2022-01-10 09:26] LABS: Percent Iron Saturation 27 % (20-50)
[2022-01-10 09:40] VITALS: BP 134/70; PULSE 64
[2022-01-10 09:42] VITALS: BP 135/98; PULSE 67
[2022-01-10 09:44] VITALS: BP 115/84; PULSE 74
[2022-01-10] MEDS: ACYCLOVIR 400 MG TABLET 800 MG PO (10:46)
[2022-01-10] MEDS: MULTIVIT/MIN/PREN/FOL AC/IRON TABLET 1 TAB PO (10:47)
[2022-01-10] MEDS: buPROPion HCL SR (12 HR) 150 MG TAB PO (10:47)
[2022-01-10] MEDS: FERROUS GLUCONATE 324 MG TABLET PO (10:47)
[2022-01-10] MEDS: LINACLOTIDE 145 MCG CAPSULE 290 MCG PO (10:55)
[2022-01-10 11:10] LABS: Thyroid Stimulating Hormone Reflex 0.856 uIU/mL (0.465-4.68)
[2022-01-10 11:54] LABS: Hematocrit 31.8 % (37.0-47.0); Hemoglobin 9.3 g/dL (12.0-15.0)
[2022-01-13 14:35] LABS: Haptoglobin 65 mg/dL (43-212)
== END 2022-01-10 14:40 | disposition home or self-care (01) ==
LOC: ANHED 19:22 → ANH2MED 01-10 01:03
PROVIDERS: Emergency Medicine; Nurse Practitioner Family; Admitting Provider Internal Medicine; Emergency Provider Emergency Medicine; PCP Nurse Practitioner Family; Visit Provider Family Medicine
DX: D50.9 Iron deficiency anemia, unspecified (principal); F32.A Depression, unspecified; E72.12 Methylenetetrahydrofolate reductase deficiency; B00.9 Herpesviral infection, unspecified; G47.30 Sleep apnea, unspecified; F41.1 Generalized anxiety disorder; E66.01 Morbid (severe) obesity due to excess calories; Z68.42 Body mass index [BMI] 45.0-49.9, adult; Z98.84 Bariatric surgery status
CPT/HCPCS: 36415; 36430; 80053; 82607; 82746; 83010; 83540; 83550; 83615; 84443; 85014; 85018; 85025; 85027; 85046; 86850; 86900; 86901; 86920; 96360; 96361; 99285; A9270; G0378; G0379; J7050; P9016

== ENCOUNTER 2023-02-17 17:18 | Emergency (ER) | payer MEDICAID, SELFPAY ==
[2023-02-17] VITALS (22 sets, daily range): BP systolic 113–146; BP diastolic 61–97; PULSE 77–98; RESP 15–20; TEMP 37; O2SAT 98–100
--- NOTE | ~2023-02-17 | XR_ITS ---
EXAMINATION: XR chest 2V Exam Date/Time: 02/17/2023 19:20 CDT HISTORY: SOB, DYSPNEA, INCREASING WEAKNESS X 1 DAY Comparison: None. RESULT: Lines, tubes, and devices: None. Lungs and pleura: Low volumes with crowding. Cardiomediastinal silhouette: Stable. Other: No acute osseous or upper abdominal finding. IMPRESSION: No acute cardiopulmonary process. Reviewed, dictated and finalized at location K.
--- NOTE | 2023-02-17 18:59 | ED.SOB ---
HPI - SOB/Dyspnea General Chief Complaint: Shortness of Breath/Dyspnea Stated Complaint: SOB, racing heart Time Seen by Provider: 02/17/23 18:54 History of Present Illness HPI Narrative: Patient is a 37-year-old female presenting with GI complaints and concerns for dehydration. Patient states that for the last 2 weeks she has had persistent diarrhea and vomiting. States that she has struggled to keep things down. She feels dehydrated and has been having muscle cramping. States that she has been a bit short of breath for the last few days. She denies abdominal or chest pain. No fevers or chills, headache, numbness or weakness, dysuria, leg swelling. Related Data Home Medications Medication Instructions Recorded Confirmed acyclovir 800 mg tablet 800 mg PO DAILY 12/12/20 01/09/22 linaclotide 290 mcg capsule 290 mcg PO BID PRN Constipation 12/12/20 01/09/22 (Linzess) vit no.95-ferrous 1 tablet PO DAILY 12/12/20 01/09/22 fumarate 28 mg-folic acid 800 mcg tablet () ferrous gluconate 324 mg (36 mg 324 mg PO DAILY 12/19/20 01/09/22 iron) tablet bupropion HCl 150 mg tablet,12 hr 150 mg PO DAILY 03/26/21 01/09/22 sustained-release Allergies Allergy/AdvReac Type Severity Reaction Status Date / Time cyanocobalamin (vitamin B12) Allergy Mild Rash Verified 01/09/22 19:23 Review of Systems Review of Systems: All systems reviewed & are unremarkable except as noted in HPI and below PMFSH Past Medical History Medical History Anemia BV (bacterial vaginosis) Candidiasis of vagina Constipation Degenerative disc disease Depressive disorder FGR ( growth retardation) FAITH (generalized anxiety disorder) GBS (group B streptococcus) infection Heterozygous MTHFR mutation C677T HSV (herpes simplex virus) infection Obesity Sleep apnea Vaginal delivery 11-23-2005, 40 wks 1. M, 8lbs 2oz, Standard Vaginal Delivery Surgical History Surgical History Gastric bypass status for obesity Gastric bypass : 06-03-2015 Family History Family History Mother Asthma Other Depression Diabetes mellitus Heart disease Hypertension Social History Social History Social History: Works 2 jobs 5-6 days per week, 12 hour shifts. Smoking status: Never smoker Second hand tobacco smoke exposure: No Alcohol intake: current Drinks per week: 1 Substance use: never Substance use type: does not use Living arrangements: with family Occupation/Education: occupation Gender identity (if verbalized by the patient): Female Sexual Orientation (if Verbalized by the Patient): Straight or Heterosexual Spiritual care concerns: No Agree to blood products: Yes Exam Narrative: GENERAL: Well-appearing, well-nourished, and in no acute distress. HEAD: Normocephalic, atraumatic. EYES: PERRLA and EOMI. ENT: Nares clear, no rhinorrhea or epistaxis. Mucous membranes moist. NECK: Supple. CHEST: Clear to auscultation. No respiratory distress. HEART: Regular rate and rhythm ABDOMEN: Soft, nontender, nondistended EXTREMITIES: Normal range of motion. No edema. SKIN: Warm, dry, no rash. NEURO: No focal deficits. Alert and oriented x3. PSYCH: Normal mood and affect. Course Vital Signs Vital signs: Vital Signs Temperature 98.6 F 02/17/23 17:18 Pulse Rate 98 02/17/23 17:18 Respiratory Rate 16 02/17/23 17:18 Blood Pressure 146/68 H 02/17/23 17:18 Pulse Oximetry 98 02/17/23 17:18 Temperature 98.6 F 02/17/23 17:18 Pulse Rate 84 02/17/23 22:21 Respiratory Rate 20 02/17/23 22:21 Blood Pressure 123/67 02/17/23 22:21 Pulse Oximetry 100 02/17/23 22:21 Oxygen Delivery Room Air 02/17/23 18:56 MDM - SOB/Dyspnea MDM Narrative Medical
[2023-02-17 19:18] LABS: Basophils Absolute Auto 0.1 K/mm3 (0.0-0.1); Basophils Percent Auto 0.4 % (0.2-1.2); Eosinophils Absolute Auto 0.1 K/mm3 (0-0.3); Eosinophils Percent Auto 0.8 % (0-4.4); Hematocrit 36.6 % (37.0-47.0); Hemoglobin 11.4 g/dL (12.0-15.0); Immature Granulocyte Absolute 0.07 K/mm3 (0.00-0.031); Immature Granulocyte Percent A 0.5 % (0-0.5); Lymphocytes Absolute Auto 2.27 K/mm3 (0.9-3.2); Lymphocytes Percent Auto 17.4 % (18.3-44.2); Mean Corpuscular HGB Conc 31.1 g/dl (32-36); Mean Corpuscular Hemoglobin 24.7 pg (26-34); Mean Corpuscular Volume 79.4 fl (80-100); Mean Platelet Volume 10.8 fl (7.4-10.4); Monocytes Absolute Auto 1.2 K/mm3 (0.1-0.6); Monocytes Percent Auto 9.3 % (2.6-8.5); Neutrophils Absolute Auto 9.3 K/mm3 (1.3-6.7); Neutrophils Percent Auto 71.6 % (45.5-73.1); Platelet Count Result 445 k/mm3 (150-375); Red Blood Count 4.61 M/mm3 (4.2-5.4); Red Cell Distribution Width 17.7 % (11.5-14.5); White Blood Count 13.1 K/mm3 (4.5-10.0)
[2023-02-17] MEDS: LACTATED RINGERS 1,000 ML 999 ML IV CONT ×2 (19:32)
[2023-02-17] MEDS: ONDANSETRON INJ 4 MG/2 ML VIAL IV PUSH (19:32)
[2023-02-17] MEDS: FAMOTIDINE 20 MG/2 ML VIAL IV PUSH (19:33)
[2023-02-17 19:54] LABS: Influenza A QL RT-PCR Negative (Negative); Influenza B QL RT-PCR Negative (Negative); SARS-CoV-2 RNA PCR Negative (Negative)
[2023-02-17 21:00] LABS: Appearance Urine Clear (Clear); Bacteria Urine Rare /hpf; Bilirubin Urine Negative (Negative); Blood Urine Negative (Negative); Color Urine Yellow (Yellow); Glucose Urine UA Negative (Negative); Ketones Urine 3+ mg/dL (Negative); Leukocyte Esterase Ur Negative LEU/UL (Negative); Nitrate Urine Negative (Negative); Non Pathogenic Casts 0-2; Protein Urine Trace mg/dL (Negative); RBC Urine 0-2 /hpf (0-2); Specific Grav Ur 1.031 (1.001-1.035); Squamous Epithelial Cell Urine Occasional /hpf (Few); pH Urine 5.5 (5.0-9.0)
[2023-02-17 21:10] LABS: Add Urine Microscopic? YES
[2023-02-17 21:58] LABS: Alanine Aminotransferase 24 U/L (6-35); Albumin Level 4.3 g/dL (3.5-5.1); Alkaline Phosphatase 83 U/L (38-126); Anion Gap 12 mmol/L (8-16); Aspartate Amino Transferase 32 U/L (14-36); Bilirubin,Total 0.4 mg/dL (0.2-1.3); Blood Urea Nitrogen 9 mg/dL (7-17); Calcium 8.5 mg/dL (8.4-10.2); Carbon Dioxide 19 mmol/L (22-30); Chloride 106 mmol/L (98-107); Estimated CRCL calculation 99 ml/min; Estimated Glomerular Filt Rate > 60; Glucose 81 mg/dL (65-110); Lipase 35 U/L (23-300); Magnesium 1.6 mg/dL (1.6-2.3); Potassium 3.2 mmol/L (3.4-5.0); Sodium 137 mmol/L (137-145)
== END 2023-02-17 22:41 | disposition home or self-care (01) ==
PROVIDERS: Emergency Provider Emergency Medicine
DX: N39.0 Urinary tract infection, site not specified (principal); R11.2 Nausea with vomiting, unspecified; R19.7 Diarrhea, unspecified; Z20.822 Contact with and (suspected) exposure to COVID-19; D64.9 Anemia, unspecified; G47.30 Sleep apnea, unspecified; E66.9 Obesity, unspecified; Z68.33 Body mass index [BMI] 33.0-33.9, adult; F32.A Depression, unspecified; F41.1 Generalized anxiety disorder; Z98.84 Bariatric surgery status
CPT/HCPCS: 36415; 71046; 80053; 81001; 81025; 83690; 83735; 85025; 87086; 87636; 96361; 96365; 96375; 99284; J0696; J2405; J7120

== ENCOUNTER 2024-12-21 11:58 | Observation (INO) | payer OTHER, SELFPAY ==
[2024-12-21] VITALS (13 sets, daily range): BP systolic 93–151; BP diastolic 46–77; PULSE 74–99; RESP 15–20; TEMP 36.3–37; O2SAT 98–100; BMI 35.7
--- OUTSIDE RECORDS SUMMARY | 2024-12-21 12:00 | XMS_ITS | Referral Summary ---
Author Organization [facility] Address [address] [place] [address] Care Team Providers Care Chocolate Dipper Name Role Phone Robin Barron NP Primary Care Provider [phone] Allergies Active Allergy Reactions Criticality Noted Date Comments Cyanocobalamin (Vitamin B12) Rash Medium 021 injections Medications naproxen (NAPROSYN) 500 mg tablet TAKE 1 TABLET EVERY 12 HOURS NEEDED. 4 Active phentermine 37.5 mg capsule 2 8 Active LINZESS 290 mcg capsule 9 Active traZODone (DESYREL) 50 mg tablet 2 Active ondansetron ODT (ZOFRAN-ODT) 4 mg disintegrating tabletIndications:I ntestinal malabsorption, unspecified type Take 1 tablet (4 mg total) by mouth every 8 (eight) hours as needed for nausea 20 tablet 3 4 Active Active Problems Problem Noted Date Diagnosed Date Vitamin D deficiency 06/16/2016 BMI 40.0-44.9, adult 11/30/2015 01/15/2023 Intestinal malabsorption 08/31/2015 History of bariatric surgery 04/18/2015 Morbid obesity 06/15/2014 Immunizations Immunization Administration Dates Next Due Pfizer SARS-CoV-2 Monovalent Vaccination (12+ Yrs) PURPLE 03/27/2021 Social History Tobacco Use Types Packs/Day Years Used Date Smoking Tobacco: Never Smokeless Tobacco: Never Tobacco Cessation:Counseling Given: Not Answered AUDIT-C Answer Date Recorded Q1: How often do you have a drink containing alc ohol? Monthly or less 06/19/2022 Average Number of Drinks Not on file 022 Frequency of Binge Drinking Not on file 06/03 Personal Safety Answer Date Recorded Getting School Help Needed Not on file 07/23 Comments Unknown Sex and Gender Information Value Date Recorded Sex Assigned at Not on file Legal Sex Female 8:54 PM ONLINE ADVERTISING ANALYST Gender Identity Female 02/21/2022 4:52 AM CDT Sexual Orientation Straight 02/21/2022 4: 52 AM CDT Last Filed Vital Signs Vital Sign Reading Time Taken Comments Blood Pressure 118/79 10/13/2023 11:58 AM CDT Pulse 84 10/13/2023 11:58 AM CDT Temperature 37.2 C (98.9 F) 06/19/2022 1:18 PM ONLINE ADVERTISING ANALYST Respiratory Rate - - Oxygen Saturation 100% 06/19/2022 1:18 PM ONLINE ADVERTISING ANALYST Inhaled Oxygen Concentration - - Weight 93 kg (205 lb) 10/13/2023 11:58 AM CDT Height 162.6 cm (5' 4 ) 10/13/2023 11:58 AM CDT Body Mass Index 35.19 10/13/2023 11:58 AM CDT Plan of Treatment Not on file Insurance [facility] IDPA Care Teams Chocolate Dipper Relationship Specialty Start Date End Date Robin Barron NP [address] [place] [address] M[place] BERRIOS [id number] PCP - General Family Medicine 10/13/23
--- OUTSIDE RECORDS SUMMARY | 2024-12-21 12:00 | XMS_ITS | Clinical Summary ---
Author Organization [facility] Address [address] [place] [address] Care Team Providers Care Mailing Specialist Name Role Phone Unavailable Primary Care Provider Unavailabl e Source Comments [facility],non-owned Affiliates and Associated Physician Practices is amultiple site organization consisting of ambulatory clinics and hospital sitesin [place], [place], [place] and [place]. This disclosure is being madepursuant to the Care Everywhere program and may not contain all information available regarding this patient. 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 Gender Identity Not on file Sexual Orientation Not on file Plan of Treatment Health Maintenance Due Date Last Done Comments HIV SCREENING 2002 HEPATITIS C SCREENING 02/19/2005 DTAP/TDAP/TD VACCINES (1 - Tdap) 2006 HEPATITIS B VACCINE (1 of 3 - 19+ 3-dose series) 2006 COVID-19 VACCINE ( - 2023-2 5 season) 2024 DEPRESSION SCREENING 08/03/2024 INFLUENZA VACCINE (Season Ended) 2025 04/03/20 ZOSTER VACCINE (1 of 2) 2037 HIB VACCINE Aged Out No longer eligi ble based on patient's age to complete this topic HPV VACCINE Aged Out No longer eligi ble based on patient's age to complete this topic MENINGOCOCCAL (Group B) VACC INE SHARED DECISION-MAKING Aged Out No longer eligibl e based on patient's age to complete this topic MENINGOCOCCAL GROUPS A/C/Y/W VACCINE Aged Out No longer eligible b ased on patient's age to complete this topic PNEUMOCOCCAL VACCINE Aged Out No long er eligible based on patient's age to complete this topic Insurance [employer] [facility] [place] [facility] MEDICAID - [facility]
--- OUTSIDE RECORDS SUMMARY | 2024-12-21 12:01 | XMS_ITS | Clinical Summary ---
Author Organization [facility] Address [address] [place] [address] Care Team Providers Care Superintendent Building Name Role Phone Robin Barron NP Primary Care Provider [phone] Allergies Active Allergy Reactions Criticality Noted Date [...] SARS-CoV-2 Monovalent Vaccination (12+ Yrs) PURPLE 03/27/2021 Surgical History Surgery Date Site/Laterality Comments GASTRIC BYPASS N/A 2016 Family History Medical History Relation Name Comments Hypertension Mother Family history of hypertension - (Added by TW Conv) Hypertension Other 1 Family history of hypertension - Relation: Grandparent (Added by TW Conv) Diabetes Other 2 Family history of diabetes mellitus - Relation: Grandparent (Added by TW Conv) Relation Name Status Comments Mother Other 1 Other 2 Social History Tobacco Use Types Packs/Day Years [...] on file 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 Gender Identity Female 02/21/2022 4:52 AM CDT Sexual Orientation Straight 02/21/2022 4: 52 AM CDT Obstetrics History Last Filed Vital Signs Vital Sign Reading Time Taken Comments Blood Pressure 118/79 10/13/2023 11:58 AM CDT Pulse 84 10/13/2023 11:58 AM CDT Temperature 37.2 C (98.9 F) 06/19/2022 1:18 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 Respiratory Rate - - Oxygen Saturation 100% 06/19/2022 1:18 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 Inhaled Oxygen Concentration - - Weight 93 kg (205 lb) 10/13/2023 11:58 AM CDT Height 162.6 cm (5' 4 ) 10/13/2023 11:58 AM CDT Body Mass Index 35.19 10/13/2023 11:58 AM CDT Plan of Treatment Health Maintenance Due Date Last Done Comments Cervical Cancer Screening 1987 Depression Screening 1987 Hepatitis C Screening 1987 Regular Well Visit/Exam 18-64 2005 HPV Vaccines (2 - 3-dose series) 04/29/2007 04/01/2007 Covid-19 Vaccine ( - season) 2024 04/16/2021, 03/27/2021 Influenza Vaccine (Season Ended) 2025 04/25/2019, 07/30/2005 DTaP/Tdap/Td Vaccine (10 - Td or Tdap) 10/16/2030 10/16/2020, 12/28/2018, 12/28/2018, Additional history exists Varicella Vaccines Completed 12/11/2015, 01/25/2015 Hepatitis B Screening Completed 01/30/2016 , 01/25/2015, 09/09/1999, Additional history exists Pneumococcal vaccine <65 Aged Out No longer eligible based on patient's age to complete this topic Insurance [facility] Care Teams Superintendent Building Relationship Specialty Start Date End Date Robin Barron, STOKER ERECTOR [address] [place] [id number] PCP - General Family Medicine 10/13/23
--- OUTSIDE RECORDS SUMMARY | 2024-12-21 12:01 | XMS_ITS | Clinical Summary ---
Author Organization [employer] [address] Address [address] [place] [id number] Care Team Providers Care Birdcage Assembler Name Role Phone Unavailable Primary Care Provider Unavailabl e Allergies Active Allergy Reactions Criticality Noted Date Comments Hi-B-12 Rash Low 05/28/2022 Medications linaCLOtide 290 mcg capsule Take by mouth daily before breakfast. PRN Active naproxen (NAPROSYN) 500 mg tablet Take 500 mg by mouth 2 times daily with meals. Active traZODone (DESYREL) 50 mg tablet 2 Active ferrous gluconate 324 mg (38 mg iron) tablet ferrous gluconate 324 mg (38 mg iron) tablet TAKE 1 TABLET BY MOUTH TWICE DAILY Active Phentermine 37.5 mg Capsule 2 Active Active Problems No known active problems Immunizations Immunization Administration Dates Next Due ([employer] Registry)(12 YR UP) COVID-19 VACCINE - EMERGENCY USE AUTHORIZATION, MRNA, [id number](PF) 30 MCG/0.3 ML IM SUSP 03/27/2021 Social History Tobacco Use Types Packs/Day Years Used Date Smoking Tobacco: Never Smokeless Tobacco: Never Tobacco Cessation:Counseling Given: Not Answered Comments Unknown Sex and Gender Information Value Date Recorded Sex Assigned at Not on file Legal 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:47 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 Gender Identity Not on file Sexual Orientation Not on file Last Filed Vital Signs Vital Sign Reading Time Taken Comments Blood Pressure 131/84 09/01/2023 11:48 AM APPRAISER TIMBER Pulse 72 09/01/2023 11:48 AM APPRAISER TIMBER Temperature 35.9 C (96.6 F) 09/01/2023 11:48 AM APPRAISER TIMBER Respiratory Rate 10 09/01/2023 11:48 AM APPRAISER TIMBER Oxygen Saturation 100% 06/05/2023 10:18 AM CDT Inhaled Oxygen Concentration - - Weight 101.6 kg (224 lb) 09/01/2023 11:48 AM APPRAISER TIMBER Height 162.6 cm (5' 4 ) 05/28/2022 12:03 PM CDT Body Mass Index 38.45 05/28/2022 12:03 PM CDT Plan of Treatment Health Maintenance Due Date Last Done Comments HPV/Cotest (21-29) 02/25/2008 HEPATITIS B VACCINES (2 of 3 - 19+ 3-dose series) 02/22/2015 01/25/2015 CERVICAL CANCER SCREENING 2017 HPV/Cotest (30-65) 2017 PAP SMEAR 2017 INFLUENZA VACCINE (#1) 2024 , 04/28/2020, 04/25/2019, Additional history exists COVID-19 Vaccine (2 - season) 2024 03/27/2021 DTAP/TDAP/TD VACCINES (3 - Td or Tdap) 12/28/2028 12/28/2018, 12/28/2018 HPV VACCINES Aged Out No longer eligi ble based on patient's age to complete this topic Insurance [employer] [place]
--- OUTSIDE RECORDS SUMMARY | 2024-12-21 12:01 | XMS_ITS | CONTINUITY OF CARE DOCUMENT ---
Author Name owen weaver Address Unknown Organization [facility] Address [id number] [place] [address] [address] [place] [address] Phone [phone] Care Team Providers Care Grounds Supervisor Name Role Phone JEREMIAS LAST, JERONIMO Unavailable INSURANCE PROVIDERS Payer name Policy type / Coverage type [employer]i red alliance party ID [place] MED[place] Medicaid [id number]
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
--- NOTE | 2024-12-21 12:45 | ECG_ITS ---
Test Date: 2024-12-21 14:32:26 Measurements Intervals [place] Rate: 83 P: 149 SC: 153 QRS: -22 QRSD: 76 T: -29 QT: 348 QTc: 409 Interpretive Statements SINUS RHYTHM POSSIBLE LEFT ATRIAL ENLARGEMENT [-0.1mV P-WAVE IN V1/V2] LOW QRS VOLTAGE IN EXTREMITY LEADS [QRS DEFLECTION < 0.5 mV IN LIMB LEADS] POSSIBLE ANTERIOR MYOCARDIAL INFARCTION , PROBABLY OLD [30 ms Q WAVE IN V3/V4, OR R < 0.2 mV IN V4] INFERIOR MYOCARDIAL INFARCTION , OF INDETERMINATE AGE [40+ ms Q WAVE AND/OR ST/T ABNORMALITY IN II/aVF] ABNORMAL ECG No previous ECG available for comparison Electronically Signed On 12-21-2024 15:16:59 CDT by Jacky David M.D.
--- NOTE | 2024-12-21 13:26 | ED.GENADULT ---
HPI - General Adult General Chief complaint: Recheck/Abnormal Lab/Rx Stated complaint: ANEMIA, SENT IN FOR BLOOD TRANSFUSION Time Seen by Provider: 12/21/24 13:25 Source: patient Mode of arrival: ambulatory Limitations: no limitations History of Present Illness HPI narrative: 39 YEARS OLD FEMALE REFERRED TO THE EMERGENCY ROOM BY HER FAMILY PHYSICIAN BECAUSE OF LOW HEMOGLOBIN 7.0. PATIENT IS STATUS POST GASTRIC BYPASS 2014, STATUS POST PLASTIC SURGERY TO REMOVE EXTRA SKIN IN THE ARM AND BACK 2 WEEKS AGO. HISTORY OF ANEMIA, LAST BLOOD TRANSFUSION AFTER HAVING VAGINAL DELIVERY OF HER LAST BABY 2020, PATIENT IS SUPPOSED TO BE ON IRON SUPPLEMENT WHICH SHE CANNOT TAKE BECAUSE OF HISTORY OF GASTRIC BYPASS. CURRENTLY PATIENT COMPLAIN LIGHTHEADEDNESS, DIZZINESS, TIREDNESS AND WEAKNESS AND SHORTNESS OF BREATH ON EXERTION. Related Data Home Medications ?Medication ?Instructions ?Recorded ?Confirmed ?Last Taken ?Type naproxen sodium 220 mg tablet 440 mg PO BID pain 12/21/24 12/21/24 Unknown History rizatriptan 10 mg tablet (Maxalt) 10 mg PO .COMPLEX PRN migraine 12/21/24 12/21/24 Unknown History headache Allergies Allergy/AdvReac Type Severity Reaction Status Date / Time No Known Allergies Allergy Verified 12/21/24 11:59 Review of Systems Review of Systems: All systems reviewed & are unremarkable except as noted in HPI and below PMFSH Past Medical History Medical History Vaginal delivery 11-23-2005, 40 wks 1. M, 8lbs 2oz, Standard Vaginal Delivery Degenerative disc disease Constipation Anemia FAITH (generalized anxiety disorder) Candidiasis of vagina BV (bacterial vaginosis) Depressive disorder Sleep apnea GBS (group B streptococcus) infection HSV (herpes simplex virus) infection Heterozygous MTHFR mutation C677T Obesity FGR ( growth retardation) History of chronic constipation Surgical History Surgical History Gastric bypass status for obesity Gastric bypass : 06-03-2015 History of gastric bypass Family History Family History Mother Asthma Other Depression Diabetes mellitus Heart disease Hypertension Social History Social History Social History: Works 2 jobs 5-6 days per week, 12 hour shifts. Smoking status: Never smoker Second hand tobacco smoke exposure: No Alcohol intake: current Drinks per week: 1 Substance use: never Substance use type: does not use Do You Feel Safe in your Home?: Yes Lack of Transportation: No Lack of Food: Never True Current Housing: I Have Housing Concerned About Future Housing: No Difficulty Paying Gas/Electric Bills: No Difficulty Paying for Meds: No Currently Unemployed: No Education: Associate Degree Difficulty w/ Childcare or Family Care: No Living arrangements: with family Occupation/Education: occupation Gender identity (if verbalized by the patient): Female Sexual Orientation (if Verbalized by the Patient): Straight or Heterosexual Spiritual care concerns: No Agree to blood products: Yes Exam Narrative: GENERAL APPEARANCE: WELL-DEVELOPED, WELL-NOURISHED SKIN: NORMAL COLOR, SURGICAL SCAR OF THE ARMS AND UPPER BACK DRY AND CLEAN, NO HEMATOMA. HEAD: NORMOCEPHALIC, NONTRAUMATIC EYES: CLEAR CONJUNCTIVA ENT: OROPHARYNX NORMAL, EARS NORMAL, NOSE NORMAL NECK: SUPPLE, NONTENDER CHEST AND RESPIRATORY: AIRWAY PATENT, NO RESPIRATORY DISTRESS, NO ACCESSORY MUSCLE USE HEART: REGULAR RATE/RHYTHM ABDOMEN: SOFT, NONTENDER, NO ORGANOMEGALY, QUIET BOWEL SOUNDS VASCULAR: NORMAL PERIPHERAL PULSES, NORMAL CAPILLARY REFILL. MUSCULOSKELETAL: NORMAL RANGE OF MOTION, NONTENDER BACK NEUROLOGIC: ALERT AND ORIENTED ?3, HOBBIES AND CRAFTS SALES REPRESENTATIVE IS NORMAL TESTED, NO GROSS MOTOR DEFICIT Course Consultations Consultation #1: DR. MORAN AGREED WITH THE CONSULT Date: 12/21/24 Time: 15:04 Vital Signs Vital signs: Vital Signs Temperature 37.0 C 12/21/24 12:03 Pulse Rate 98 12/21/24 12:03 Respiratory Rate 15 12/21/24 12:03 Blood Pressure 151/75 H 12/21/24 12:03 Pulse Oximetry 100 12/21/24 12:03 Oxygen Delivery Room Air 12/21/24 12:03 Temperature 37.0 C 12/21/24 12:03 Pulse Rate 94 12/21/24 15:01 Respiratory Rate 17 12/21/24 15:01 Blood Pressure 132/75 12/21/24 15:01 Pulse Oximetry 100 12/21/24 15:01 Oxygen Delivery Room Air 12/21/24 12:57 Medical Decision Making [facility] Narrative Medical decision making narrative: PATIENT CAME TO THE ED WITH ANEMIA VITAL SIGNS SHOWING BLOOD PRESSURE 151/75 PHYSICAL EXAMINATION SHOWING PALE SKIN OTHERWISE INSIGNIFICANT DIFFERENTIAL DIAGNOSIS ANEMIA, IRON DEFICIENCY ANEMIA IS HIGH LIKELY. BLOOD WORKUP TODAY INCLUDES CBC, CMP SHOWED HEMOGLOBIN 6.5, HEMATOCRIT 23.0, PLATELET 484 OTHERWISE INSIGNIFICANT DIAGNOSIS: ANEMIA ADMIT TO HOSPITALIST FOR BLOOD TRANSFUSION CONSULT DEEP FAT COOK FRY. Differential Diagnosis Differential Diagnosis: ABOVE Vital Signs Vital Signs: Vital Signs Temperature 37.0 C 12/21/24 12:03 Pulse Rate 98 12/21/24 12:03 Respiratory Rate 15 12/21/24 12:03 Blood Pressure 151/75 H 12/21/24 12:03 Pulse Oximetry 100 12/21/24 12:03 Oxygen Delivery Room Air 12/21/24 12:03 Temperature 37.0 C 12/21/24 12:03 Pulse Rate 94 12/21/24 15:01 Respiratory Rate 17 12/21/24 15:01 Blood Pressure 132/75 12/21/24 15:01 Pulse Oximetry 100 12/21/24 15:01 Oxygen Delivery Room Air 12/21/24 12:57 Lab Data 12/21/24 14:17 12/21/24 14:17 Labs: Lab Results 12/21/24 12/21/24 Range/Units 14:16 14:17 WBC 9.5 (4.5-10.0) K/mm3 RBC 3.05 L (4.2-5.4) M/mm3 Hgb 6.5 L* D (12.0-15.0) g/dL Hct 23.0 L (37.0-47.0) % MCV 75.4 L (80-100) fl MCH 21.3 L (26-34) pg MCHC 28.3 L (32-36) g/dl RDW 17.6 H (11.5-14.5) % Plt Count 484 H D (150-375) k/mm3 MPV 10.6 H (7.4-10.4) fl Immature Gran % (Auto) 0.3 (0-0.5) % Neut % (Auto) 69.8 (45.5-73.1) % Lymph % (Auto) 20.0 (18.3-44.2) % [place] % (Auto) 6.6 (2.6-8.5) % Eos % (Auto) 2.8 (0-4.4) % Baso % (Auto) 0.5 (0.2-1.2) % Lymph # (Auto) 1.90 (0.9-3.2) K/mm3 [place] # (Auto) 0.6 (0.1-0.6) K/mm3 Eos # (Auto) 0.3 (0-0.3) K/mm3 Baso # (Auto) 0.1 (0.0-0.1) K/mm3 Abs Immat Gran (auto) 0.03 (0.00-0.031) K/mm3 Absolute Neuts (auto) 6.6 (1.3-6.7) K/mm3 Absolute Nucleated RBC 0.000 (0.0-0.012) K/mm3 Band Neutrophils % Not Reportable Nucleated RBC % 0.0 (0.0-0.2) % Platelet Estimate Increased (Adequate) Hypochromasia 1+ Anisocytosis 2+ Ovalocytes 2+ Schistocytes Not Reportable Absolute Retic 0.04 (0.02-0.10) 10^6/uL Percent Retic 1.25 (0.7-4.3) % Immature Retic Fraction 10.1 (3.0-15.9) % Retic Hgb Content 17.7 L (28.2-36.6) pg Sodium 138 (137-145) mmol/L Potassium 4.6 (3.4-5.0) mmol/L Chloride 106 (98-107) mmol/L Carbon Dioxide 25 (22-30) mmol/L Anion Gap 7 (4-12) mmol/L BUN 14 D (7-17) mg/dL Creatinine 0.68 L (0.7-1.0) mg/dL Estim Creat Clear Calc 108 ml/min Estimated GFR > 60 (59 - ) Glucose 79 (65-110) mg/dL Calcium 8.6 (8.4-10.2) mg/dL Total Bilirubin 0.2 (0.2-1.3) mg/dL AST 41 H (14-36) U/L ALT 39 H (6-35) U/L Alkaline Phosphatase 61 (38-126) U/L Total Protein 7.0 (6.3-8.2) g/dL Albumin 3.8 (3.5-5.1) g/dL Vitamin B12 Pending Folate Pending Blood Type B Positive Antibody Screen Negative Crossmatch See Detail Critical Care Time Critical Care Time Critical Care Time: No Discharge Plan Discharge Clinical Impression: Anemia Patient Disposition: Still a Patient Condition: Stable Patient Language: Malay Prescriptions: No Action ferrous gluconate 324 mg (36 mg iron) Tablet 324 mg PO DAILY cephalexin 500 mg capsule 500 mg PO Q12H 7 Days Qty: 14 0RF ondansetron HCl 4 mg tablet 4 mg PO Q8H PRN (Reason: nausea and vomiting) 5 Days Qty: 20 0RF cyclobenzaprine 10 mg tablet 10 mg PO TID PRN (Reason: muscle spasm) Qty: 20 0RF acetaminophen 500 mg capsule 500 mg PO Q6H PRN (Reason: pain) Qty: 20 0RF naproxen sodium 220 mg tablet 220 mg PO BID PRN (Reason: pain) Qty: 14 0RF metaxalone [Metaxall] 800 mg tablet 800 mg PO TID PRN (Reason: muscle pain) Qty: 14 0RF acyclovir 800 mg Tablet 800 mg PO DAILY PNV cmb#95-ferrous fumarate-FA [] 28 mg iron- 800 mcg Tablet 1 tablet PO DAILY Linzess 290 mcg Capsule 290 mcg PO BID PRN (Reason: Constipation) bupropion HCl 150 mg tablet sustained-release 12 hr 150 mg PO DAILY Follow-up/Referrals: Hi,Justina Harry, SCADA ENGINEER [Primary Care Provider] -
[2024-12-21 14:31] LABS: Basophils Absolute Auto 0.1 K/mm3 (0.0-0.1); Basophils Percent Auto 0.5 % (0.2-1.2); Eosinophils Absolute Auto 0.3 K/mm3 (0-0.3); Eosinophils Percent Auto 2.8 % (0-4.4); Immature Granulocyte Absolute 0.03 K/mm3 (0.00-0.031); Immature Granulocyte Percent A 0.3 % (0-0.5); Mean Corpuscular HGB Conc 28.3 g/dl (32-36); Mean Corpuscular Hemoglobin 21.3 pg (26-34); Mean Corpuscular Volume 75.4 fl (80-100); Mean Platelet Volume 10.6 fl (7.4-10.4); Monocytes Absolute Auto 0.6 K/mm3 (0.1-0.6); Monocytes Percent Auto 6.6 % (2.6-8.5); Neutrophils Absolute Auto 6.6 K/mm3 (1.3-6.7); Neutrophils Percent Auto 69.8 % (45.5-73.1); Platelet Count Result 484 k/mm3 (150-375); Red Blood Count 3.05 M/mm3 (4.2-5.4); Red Cell Distribution Width 17.6 % (11.5-14.5); White Blood Count 9.5 K/mm3 (4.5-10.0)
[2024-12-21 14:40] LABS: Alanine Aminotransferase 39 U/L (6-35); Albumin Level 3.8 g/dL (3.5-5.1); Alkaline Phosphatase 61 U/L (38-126); Anion Gap 7 mmol/L (4-12); Aspartate Amino Transferase 41 U/L (14-36); Bilirubin,Total 0.2 mg/dL (0.2-1.3); Blood Urea Nitrogen 14 mg/dL (7-17); Calcium 8.6 mg/dL (8.4-10.2); Carbon Dioxide 25 mmol/L (22-30); Chloride 106 mmol/L (98-107); Estimated CRCL calculation 108 ml/min; Estimated Glomerular Filt Rate > 60; Glucose 79 mg/dL (65-110); Potassium 4.6 mmol/L (3.4-5.0); Sodium 138 mmol/L (137-145)
[2024-12-21 14:49] LABS: Hemoglobin 6.5 g/dL (12.0-15.0)
[2024-12-21 14:53] LABS: Anisocytosis 2+; Ovalocytes 2+; Platelet Estimate Increased (Adequate)
[2024-12-21 14:54] LABS: Hypochromasia 1+
--- OUTSIDE RECORDS SUMMARY | 2024-12-21 14:54 | XMS_ITS | Clinical Summary ---
Author Organization [facility] Address [address] [place] [address] Care Team Providers Care 4 H Youth Development Specialist Name Role Phone Unavailable Primary Care Provider Unavailabl e Source Comments [facility],non-owned Affiliates and Associated Physician Practices is amultiple site organization consisting of ambulatory clinics and hospital sitesin [place], [place], [place] and [place]. This disclosure is being madepursuant to the Care Everywhere program and may not contain all information available regarding this patient. Last updated 18.[facility] Allergies Active Allergy Reactions Criticality Noted Date [...] on file Legal Sex Female 5:42 AM DIGITAL MARKETING COORDINATOR Gender Identity Not on file Sexual Orientation [...] [place] [facility] MEDICAID - [facility]
--- OUTSIDE RECORDS SUMMARY | 2024-12-21 14:54 | XMS_ITS | CONTINUITY OF CARE DOCUMENT ---
Author Name owen weaver Address Unknown Organization [facility] Address [id number] [place] [address] [address] [place] [address] Phone [phone] Care Team Providers Care Paint Spray Inspector Name Role Phone JEREMIAS LAST, JERONIMO Unavailable [phone] INSURANCE PROVIDERS Payer name Policy type / Coverage type Regi red republican [place] MEDICAID Medicaid [id number]
--- OUTSIDE RECORDS SUMMARY | 2024-12-21 14:54 | XMS_ITS | Referral Summary ---
Author Organization [facility] al Address [address] [place] [address] Care Team Providers Care Innersole Fitter Name Role Phone Robin Barron NP Primary Care Provider [phone] Allergies Active Allergy Reactions Criticality Noted Date [...] on file Legal Sex Female 8:54 PM STRIPPER AND TAPER Gender Identity Female 02/21/2022 4:52 AM CDT Sexual Orientation Straight 02/21/2022 4: 52 AM CDT Last Filed Vital Signs Vital Sign Reading Time Taken Comments Blood Pressure 118/79 10/13/2023 11:58 AM CDT Pulse 84 10/13/2023 11:58 AM CDT Temperature 37.2 C (98.9 F) 06/19/2022 1:18 PM STRIPPER AND TAPER Respiratory Rate - - Oxygen Saturation 100% 06/19/2022 1:18 PM STRIPPER AND TAPER Inhaled Oxygen Concentration - - Weight 93 kg (205 lb) 10/13/2023 11:58 AM CDT Height 162.6 cm (5' 4 ) 10/13/2023 11:58 AM CDT Body Mass Index 35.19 10/13/2023 11:58 AM CDT Plan of Treatment Not on file Insurance [facility] IDPA Care Teams Innersole Fitter Relationship Specialty Start Date End Date Robin Barron NP [address] [place] [address] [place] B[place]RIOS [id number] PCP - General Family Medicine 10/13/23
--- OUTSIDE RECORDS SUMMARY | 2024-12-21 14:54 | XMS_ITS | Clinical Summary ---
Author Organization [facility] al Address [address] [place] [address] Care Team Providers Care Straight Tooth Gear Generator Operator Name Role Phone Robin Barron NP Primary Care Provider [phone] Allergies Active Allergy Reactions Criticality Noted Date [...] on file Legal Sex Female 8:54 PM ELECTRONICS DEPARTMENT MANAGER Gender Identity Female 02/21/2022 4:52 AM CDT Sexual Orientation Straight 02/21/2022 4: 52 AM CDT Obstetrics History Last Filed Vital Signs Vital Sign Reading Time Taken Comments Blood Pressure 118/79 10/13/2023 11:58 AM CDT Pulse 84 10/13/2023 11:58 AM CDT Temperature 37.2 C (98.9 F) 06/19/2022 1:18 PM ELECTRONICS DEPARTMENT MANAGER Respiratory Rate - - Oxygen Saturation 100% 06/19/2022 1:18 PM ELECTRONICS DEPARTMENT MANAGER Inhaled Oxygen Concentration - - Weight 93 [...] patient's age to complete this topic Insurance [facility] Care Teams Straight Tooth Gear Generator Operator Relationship Specialty Start Date End Date Robin Barron, INSTRUCTIONAL PARAPROFESSIONAL [address] [place] [address] PCP - General Family Medicine 10/13/23
--- OUTSIDE RECORDS SUMMARY | 2024-12-21 14:54 | XMS_ITS | Clinical Summary ---
Author Organization [employer] [address] Address [address] [place] [address] Care Team Providers Care Still Operator Gin Name Role Phone Unavailable Primary Care Provider [...] problems Immunizations Immunization Administration Dates Next Due (Bib + Tuck)(12 YR UP) COVID-19 VACCINE - EMERGENCY USE AUTHORIZATION, MRNA, [id number](PF) 30 MCG/0.3 ML IM SUSP 03/27/2021 Social History Tobacco Use Types Packs/Day Years Used Date Smoking Tobacco: Never Smokeless Tobacco: Never Tobacco Cessation:Counseling Given: Not Answered Comments Unknown Sex and Gender Information Value Date Recorded Sex Assigned at Not on file Legal 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:47 PM INTERVENTIONAL TECH Gender Identity Not on file Sexual Orientation Not on file Last Filed Vital Signs Vital Sign Reading Time Taken Comments Blood Pressure 131/84 09/01/2023 11:48 AM INTERVENTIONAL TECH Pulse 72 09/01/2023 11:48 AM INTERVENTIONAL TECH Temperature 35.9 C (96.6 F) 09/01/2023 11:48 AM INTERVENTIONAL TECH Respiratory Rate 10 09/01/2023 11:48 AM INTERVENTIONAL TECH Oxygen Saturation 100% 06/05/2023 10:18 AM CDT Inhaled Oxygen Concentration - - Weight 101.6 kg (224 lb) 09/01/2023 11:48 AM INTERVENTIONAL TECH Height 162.6 cm (5' 4 ) 05/28/2022 [...]
[2024-12-21 15:27] LABS: Immature Reticulocyte Fraction 10.1 % (3.0-15.9); Reticulocyte Hemoglobin Conten 17.7 pg (28.2-36.6); Reticulocyte Percent 1.25 % (0.7-4.3); Reticulocytes Absolute 0.04 10^6/uL (0.02-0.10)
[2024-12-21] MEDS: ACETAMINOPHEN 325 MG TABLET 650 MG PO (16:29)
[2024-12-21] MEDS: SODIUM CHLORIDE 0.9% IV 250 ML 30 ML IV CONT (16:30)
[2024-12-21] MEDS: TUBING, BLOOD PLUM PUMP TUBING 1 EACH XX (16:31)
--- NOTE | 2024-12-21 16:44 | PM.IMHP ---
H&P: HPI History of Present Illness Date/Time: 12/21/24 16:44 Chief Complaint: Abnormal Lab Narrative: 39 y/o F with PMH of iron deficiency anemia, gastric bypass surgery, sleep apnea, and Heterozygous MTHFR mutation C677T presents here with abnormal labs - low hemoglobin. The patient presents here from home on 12/21 for further evaluation of a low hemoglobin - 7.0. She reports she had outpatient lab work that was ordered by her PCP which showed a low hemoglobin/hematocrit. She was directed to the emergency department for a blood transfusion. She reports a history of iron deficiency anemia and blood transfusion (2020). She is not currently on iron supplementation due to previous history of gastric bypass (2014). She denies known personal or family history of sickle cell disease or thalassemia. She reports associated lightheadedness, fatigue, generalized weakness, mild exertional shortness of breath, and mild dizziness. She denies dark tarry stools, hematochezia, hematemesis, or epistaxis. Reports heavy cycles, has a cycle for 5 days and occasionally has two cycles in a month. Initial VS at presentation: 98.6? F, HR 98, R 15, 151/75, and 100% on RA. ED workup showed: No leukocytosis, hemoglobin 6.5, MCV 75.4, MCHC 28.3, platelet count 484, creatinine 0.68 and GFR >60, no significant electrolyte derangements, AST 41, ALT 39. EKG showed sinus rhythm, rate 83, possible left atrial enlargement, low QRS voltage in extremity leads, possible anterior AK probably old, inferior AK of indeterminate age. Review of Systems Review of Systems: All systems reviewed & are unremarkable except as noted in HPI and below PMFSH Past Medical History Medical History Vaginal delivery 11-23-2005, 40 wks 1. M, 8lbs 2oz, Standard Vaginal Delivery Degenerative disc disease Constipation Anemia FAITH (generalized anxiety disorder) Candidiasis of vagina BV (bacterial vaginosis) Depressive disorder Sleep apnea GBS (group B streptococcus) infection HSV (herpes simplex virus) infection Heterozygous MTHFR mutation C677T Obesity FGR ( growth retardation) History of chronic constipation Surgical History Surgical History Gastric bypass status for obesity Gastric bypass : 06-03-2015 History of gastric bypass Family History Family History Mother Asthma Other Depression Diabetes mellitus Heart disease Hypertension Social History Social History Social History: Works 2 jobs 5-6 days per week, 12 hour shifts. Smoking status: Never smoker Second hand tobacco smoke exposure: No Alcohol intake: current Drinks per week: 1 Substance use: never Substance use type: does not use Do You Feel Safe in your Home?: Yes Lack of Transportation: No Lack of Food: Never True Current Housing: I Have Housing Concerned About Future Housing: No Difficulty Paying Gas/Electric Bills: No Difficulty Paying for Meds: No Currently Unemployed: No Education: Associate Degree Difficulty w/ Childcare or Family Care: No Living arrangements: with family Occupation/Education: occupation Gender identity (if verbalized by the patient): Female Sexual Orientation (if Verbalized by the Patient): Straight or Heterosexual Spiritual care concerns: No Agree to blood products: Yes Meds Home Medications and Allergies Home Medications ?Medication ?Instructions ?Recorded ?Confirmed ?Type naproxen sodium 220 mg tablet 440 mg PO BID pain 12/21/24 12/21/24 History rizatriptan 10 mg tablet (Maxalt) 10 mg PO .COMPLEX PRN migraine 12/21/24 12/21/24 History headache Allergies Allergy/AdvReac Type Severity Reaction Status Date / Time No Known Allergies Allergy Verified 12/21/24 11:59 Vital Signs Vital Signs - 24 hr 12/21/24 12:03 12/21/24 12:49 12/21/24 12:57 Temperature 98.6 F Pulse Rate 98 98 99 Respiratory Rate 15 18 20 Blood Pressure 151/75 H 135/75 135/75 Pulse Oximetry 100 100 98 Oxygen Delivery Room Air Room Air 12/21/24 14:13 12/21/24 15:01 12/21/24 16:32 Temperature 98 F Pulse Rate 83 94 80 Respiratory Rate 15 17 16 Blood Pressure 130/64 132/75 135/77 Pulse Oximetry 100 100 100 Oxygen Delivery Exam Const: General: comfortable and no acute distress Other: , female, nontoxic appearance HENMT: Face/Nose/Sinus: Normal nares present Mouth: Yes moist mucous membranes Eyes: General: appearance normal, both eyes and all related structures Sclera: sclerae normal Pupils: Equal, round and reactive pupils present EOM: EOMs intact bilaterally Resp: Effort & Inspection: normal respiratory effort Auscultation: clear to auscultation bilaterally Cardio: Rate: regular rate Rhythm: regular rhythm Other: S1-S2 present without murmur, rub, ectopy GI: Other: Abdomen soft, nondistended, nontender. Normoactive bowel sounds in all quadrants. Skin: General skin exam: normal color and no rashes or lesions noted Wounds: no wounds Neuro: Speech: normal speech Motor exam (neuro): 5/5 motor strength present throughout Sensory Exam: normal sensation Other: A&O x4 Extrem: General: normal to inspection Psych: Mental Status: mental status grossly normal Affect: normal affect Other: Good insight and judgment, very pleasant H&P: Results Labs Labs: Short CBC 12/21/24 Range/Units 14:17 WBC 9.5 (4.5-10.0) K/mm3 Hgb 6.5 L* D (12.0-15.0) g/dL Hct 23.0 L (37.0-47.0) % Plt Count 484 H D (150-375) k/mm3 BMP 12/21/24 14:17 Sodium 138 Potassium 4.6 Chloride 106 Carbon Dioxide 25 BUN 14 D Creatinine 0.68 L Glucose 79 Calcium 8.6 Liver Function 12/21/24 Range/Units 14:17 Total Bilirubin 0.2 (0.2-1.3) mg/dL AST 41 H (14-36) U/L ALT 39 H (6-35) U/L Alkaline Phosphatase 61 (38-126) U/L Albumin 3.8 (3.5-5.1) g/dL Assessment and Plan Assessment and plan (1) Anemia: Qualifiers: Anemia type: iron deficiency Iron deficiency anemia type: unspecified iron deficiency Qualified Code(s): D50.9 - Iron deficiency anemia, unspecified Code(s): D64.9 - Anemia, unspecified Status: Acute Assessment and Plan: - Hgb 6.5, MCV 75.4, MCHC 28.3 - Hx of iron deficiency anemia, not currently on iron supplementation as she has a history of gastric bypass surgery - check iron, TIBC, ferritin, B12, folic acid, and TSH - transfuse if <7 Current plan to transfuse 2 units PRBC - trend H&H - no reported dark tarry stools, hematemesis, hematochezia, heavy vaginal bleeding, or epistaxis - hematology consulted Plan for iron transfusion Plan Diet: Regular GI Prophylaxis: Not currently indicated DVT Prophylaxis: SCDs IV fluids: None Lines/Tubes: Peripheral IV Code Status: Full code Quality VTE Prophylaxis VTE prophylaxis: mechanical ordered Hospitalist MIPS Advance Care Plan I have confirmed that the patient's Advanced Care Plan is present, code status is documented, or surrogate decision maker is listed in patient medical record.: Yes Medication Reconciliation I have utilized all available resources to obtain, update and review the patients current medications (includes all prescriptions, OTC, herbals, cannabis, and nutritional supplements).: Yes
[2024-12-21 16:56] LABS: Iron 24 ug/dL (37-170)
[2024-12-21 17:05] LABS: Percent Iron Saturation 6 % (20-50)
[2024-12-21 17:32] LABS: Ferritin 6.69 ng/mL (6.24-137)
--- NOTE | 2024-12-21 17:52 | ADMGEN ---
This patient, Michelle Stewart, was admitted to [facility] Surg Room 311-01. Patient/family oriented to hospital policies and general routines including ID bracelet, bed and alarms, visiting hours, pain management, procedures, bathroom and other care routines, personal items, smoking policy, room service/diet, and visiting hours. Information on how to activate the Rapid Response Team has been discussed. Patient/Family are encouraged to report perceived risks to care and to ask questions if they do not understand what they are told or what they should do.
--- NOTE | 2024-12-21 18:21 | P.CONONC_ITS ---
Assessment and Plan Assessment and plan (1) OLIVIA (iron deficiency anemia): Code(s): D50.9 - Iron deficiency anemia, unspecified Status: Acute Assessment and Plan: This is a pleasant 39-year-old morbidly obese female status post gastric bypass surgery in 2014 with more than 100 lb weight loss came into the hospital with anemia. She denies any melena hematochezia. She had recent plastic surgery done to remove extra skin from bilateral upper extremities 2 weeks ago. She has been having heavy menstrual bleeding. She is on the taking iron occasionally. I have discussed this case with ER physician today. Iron studies showed serum iron of 24 with iron saturation of 6%. Creatinine was normal. Vitamin B12 was also low at 360. After the blood transfusion will give her iron infusion prior to the discharge. I will also give her vitamin B12 1 mg injection today. I recommended to take oral iron 65 mg twice a day with vitamin-C 500 mg daily. She will follow-up with me in the office. HPI Data of Consult Date/Time: 12/21/24 18:21 Requesting Physician: Guanaco Roy MD Primary Care Provider: Justina Do, STRAW HAT PLUNGER OPERATOR Consult Narrative Narrative: Michelle Stewart is a 39 year old female with history of gastric bypass surgery in 2014 with more than 100 lb weight loss along with generalized anxiety disorder, degenerative disc disease came into the hospital due to anemia when hemoglobin was found to be 7.0 by primary care physician. She denies any melena hematochezia. Denies any hematuria. Her menstrual bleeding is heavy and last for about 6-7 days. She also had recent plastic surgery done to remove extra skin from bilateral arm about 2 weeks ago. She was told to take oral iron but taking occasionally. She has been complaining of tiredness and fatigue. Denies any other complaint. Review of Systems 2 Review of Systems: Review of systems as per HPI otherwise negative PMFSH Past Medical History Medical History Vaginal delivery 11-23-2005, 40 wks 1. M, 8lbs 2oz, Standard Vaginal Delivery Degenerative disc disease Constipation Anemia FAITH (generalized anxiety disorder) Candidiasis of vagina BV (bacterial vaginosis) Depressive disorder Sleep apnea GBS (group B streptococcus) infection HSV (herpes simplex virus) infection Heterozygous MTHFR mutation C677T Obesity FGR ( growth retardation) History of chronic constipation Surgical History Surgical History Gastric bypass status for obesity Gastric bypass : 06-03-2015 History of gastric bypass Family History Family History Mother Asthma Other Depression Diabetes mellitus Heart disease Hypertension Social History Social History Social History: Works 2 jobs 5-6 days per week, 12 hour shifts. Smoking status: Never smoker Second hand tobacco smoke exposure: No Alcohol intake: current Drinks per week: 1 Substance use: never Substance use type: does not use Do You Feel Safe in your Home?: Yes Lack of Transportation: No Lack of Food: Never True Current Housing: I Have Housing Concerned About Future Housing: No Difficulty Paying Gas/Electric Bills: No Difficulty Paying for Meds: No Currently Unemployed: No Education: Associate Degree Difficulty w/ Childcare or Family Care: No Living arrangements: with family Occupation/Education: occupation Gender identity (if verbalized by the patient): Female Sexual Orientation (if Verbalized by the Patient): Straight or Heterosexual Spiritual care concerns: No Agree to blood products: Yes Meds Home Medications and Allergies Home Medications ?Medication ?Instructions ?Recorded ?Confirmed ?Type naproxen sodium 220 mg tablet 440 mg PO BID pain 12/21/24 12/21/24 History rizatriptan 10 mg tablet (Maxalt) 10 mg PO .COMPLEX PRN migraine 12/21/24 12/21/24 History headache Allergies Allergy/AdvReac Type Severity Reaction Status Date / Time No Known Allergies Allergy Verified 12/21/24 11:59 Vital Signs Vital Signs - 24 hr 12/21/24 12:03 12/21/24 12:49 12/21/24 12:57 Temperature 37.0 C Pulse Rate 98 98 99 Respiratory Rate 15 18 20 Blood Pressure 151/75 H 135/75 135/75 Pulse Oximetry 100 100 98 Oxygen Delivery Room Air Room Air 12/21/24 14:13 12/21/24 15:01 12/21/24 16:32 Temperature 36.6 C Pulse Rate 83 94 80 Respiratory Rate 15 17 16 Blood Pressure 130/64 132/75 135/77 Pulse Oximetry 100 100 100 Oxygen Delivery 12/21/24 16:55 Temperature 36.5 C Pulse Rate 82 Respiratory Rate 18 Blood Pressure 133/72 Pulse Oximetry 100 Oxygen Delivery Exam 2 Narrative: Lungs are clear to auscultation bilaterally Cardiovascular regular rate rhythm no murmurs Abdomen soft nontender nondistended Extremities no edema Results Labs 12/21/24 14:17 12/21/24 14:17 Labs: Short CBC 12/21/24 Range/Units 14:17 WBC 9.5 (4.5-10.0) K/mm3 Hgb 6.5 L* D (12.0-15.0) g/dL Hct 23.0 L (37.0-47.0) % Plt Count 484 H D (150-375) k/mm3 BMP 12/21/24 14:17 Sodium 138 Potassium 4.6 Chloride 106 Carbon Dioxide 25 BUN 14 D Creatinine 0.68 L Glucose 79 Calcium 8.6 Liver Function 12/21/24 Range/Units 14:17 Total Bilirubin 0.2 (0.2-1.3) mg/dL AST 41 H (14-36) U/L ALT 39 H (6-35) U/L Alkaline Phosphatase 61 (38-126) U/L Albumin 3.8 (3.5-5.1) g/dL
[2024-12-21] MEDS: SODIUM CHLORIDE 0.9% IV 100 ML 60 ML (22:37)
[2024-12-21] MEDS: RIZATRIPTAN BENZOATE 10 MG ODT PO (23:34)
[2024-12-22 00:45] VITALS: BP 107/74; PULSE 70; RESP 16; TEMP 36.2; O2SAT 100
[2024-12-22 01:28] VITALS: BP 123/62; PULSE 65; RESP 16; TEMP 36.1; O2SAT 99
[2024-12-22] MEDS: CYANOCOBALAMIN INJ 1,000 MCG/ML VIAL 1000 MCG IM (01:30)
[2024-12-22] MEDS: IRON SUCROSE COMPLEX 400 MG, IRON SUCROSE COMPLEX 100 MG in SODIUM CHLORIDE 0.9% IV 250 ML 78.57 MG IVPB (01:34)
[2024-12-22 06:00] VITALS: BP 107/67; PULSE 67; RESP 16; TEMP 36.6; O2SAT 98
[2024-12-22 06:15] LABS: Basophils Absolute Auto 0.1 K/mm3 (0.0-0.1); Basophils Percent Auto 0.7 % (0.2-1.2); Eosinophils Absolute Auto 0.3 K/mm3 (0-0.3); Eosinophils Percent Auto 3.7 % (0-4.4); Hematocrit 27.3 % (37.0-47.0); Hemoglobin 7.7 g/dL (12.0-15.0); Immature Granulocyte Absolute 0.03 K/mm3 (0.00-0.031); Immature Granulocyte Percent A 0.4 % (0-0.5); Lymphocytes Absolute Auto 1.66 K/mm3 (0.9-3.2); Lymphocytes Percent Auto 23.7 % (18.3-44.2); Mean Corpuscular HGB Conc 28.2 g/dl (32-36); Mean Corpuscular Volume 81.5 fl (80-100); Mean Platelet Volume 10.7 fl (7.4-10.4); Monocytes Absolute Auto 0.5 K/mm3 (0.1-0.6); Monocytes Percent Auto 7.7 % (2.6-8.5); Neutrophils Absolute Auto 4.5 K/mm3 (1.3-6.7); Neutrophils Percent Auto 63.8 % (45.5-73.1); Platelet Count Result 407 k/mm3 (150-375); Red Blood Count 3.35 M/mm3 (4.2-5.4); Red Cell Distribution Width 17.7 % (11.5-14.5)
[2024-12-22 06:24] LABS: Anion Gap 5 mmol/L (4-12); Blood Urea Nitrogen 13 mg/dL (7-17); Calcium 8.4 mg/dL (8.4-10.2); Carbon Dioxide 23 mmol/L (22-30); Chloride 108 mmol/L (98-107); Estimated CRCL calculation 103 ml/min; Estimated Glomerular Filt Rate > 60; Glucose 76 mg/dL (65-110); Sodium 136 mmol/L (137-145)
[2024-12-22 06:32] LABS: INR 1.1; Prothrombin Time 14.7 Seconds (11.1-14.7)
[2024-12-22 06:33] LABS: Partial Thromboplastin Time 36.6 Seconds (22.3-36.8)
[2024-12-22 06:40] LABS: Anisocytosis 1+; Burr Cells 1+; Hypochromasia 1+; Ovalocytes 1+; Platelet Estimate Increased (Adequate); Schistocytes Rare
[2024-12-22 09:01] VITALS: O2SAT 100
[2024-12-22] MEDS: RIZATRIPTAN BENZOATE 10 MG ODT PO (09:09)
--- NOTE | 2024-12-22 11:47 | P.DS_ITS ---
DS: Admitting Diagnosis Discharge Date 12/22 Admitting Diagnosis anemia DS: Discharge Diagnosis Discharge Diagnosis (1) Anemia: Qualifiers: Anemia type: iron deficiency Iron deficiency anemia type: unspecified iron deficiency Qualified Code(s): D50.9 - Iron deficiency anemia, unspecified Code(s): D64.9 - Anemia, unspecified Status: Acute Plan Diet: Regular GI Prophylaxis: Not currently indicated DVT Prophylaxis: SCDs IV fluids: None Lines/Tubes: Peripheral IV Code Status: Full code DS: Summary Hospital Course Hospital Course: 39 y/o F with PMH of iron deficiency anemia, gastric bypass surgery, sleep apnea, and Heterozygous MTHFR mutation C677T presents here with abnormal labs - low hemoglobin. The patient presents here from home on 12/21 for further evaluation of a low hemoglobin - 7.0. She reports she had outpatient lab work that was ordered by her PCP which showed a low hemoglobin/hematocrit. Hgb 6.5, MCV 75.4, MCHC 28.3 no reported dark tarry stools, hematemesis, hematochezia, heavy vaginal bleeding, or epistaxis Hematology was consulted and saw pt. Notes reviewed: Iron studies showed serum iron of 24 with iron saturation of 6%. Creatinine was normal. Vitamin B12 was also low at 360. After the blood transfusion will give her iron infusion prior to the discharge. I will also give her vitamin B12 1 mg injection today. I recommended to take oral iron 65 mg twice a day with vitamin-C 500 mg daily. She will follow-up with me in the office. Hg imptoved today. Safe to discharge with a close f/u with DR Bangura and PCP. Repeat CBC within a week of discharge. Status at Discharge Functional status at discharge: independent ambulation Overall status at discharge: patient is back to baseline Time Spent with Patient Time attestation: Total time spent providing and/or coordinating discharge services: Time spent: Less than 30 minutes Exam Const: General: comfortable and no acute distress Other: , female, nontoxic appearance HENMT: Face/Nose/Sinus: Normal nares present Mouth: Yes moist mucous membranes Eyes: General: appearance normal, both eyes and all related structures Sclera: sclerae normal Pupils: Equal, round and reactive pupils present EOM: EOMs intact bilaterally Resp: Effort & Inspection: normal respiratory effort Auscultation: clear to auscultation bilaterally Cardio: Rate: regular rate Rhythm: regular rhythm Other: S1-S2 present without murmur, rub, ectopy GI: GI Palp: Yes Soft to palpation Other: Abdomen soft, nondistended, nontender. Normoactive bowel sounds in all quadrants. Skin: General skin exam: normal color and no rashes or lesions noted Wounds: no wounds Neuro: Cranial nerves: Yes Equal, round and reactive pupils present Speech: normal speech Motor exam (neuro): 5/5 motor strength present throughout Sensory Exam: normal sensation Other: A&O x4 Extrem: General: normal to inspection Psych: Mental Status: mental status grossly normal Affect: normal affect Other: Good insight and judgment, very pleasant DS: Data Data Completed and Pending Completed studies during hospitalization: na Labs on day of discharge: Labs from last 24 hours 12/22/24 12/21/24 12/21/24 05:29 16:28 14:17 WBC 7.0 9.5 RBC 3.35 L 3.05 L Hgb 7.7 L 6.5 L* D Hct 27.3 L 23.0 L MCV 81.5 D 75.4 L MCH 23.0 L D 21.3 L MCHC 28.2 L 28.3 L RDW 17.7 H 17.6 H Plt Count 407 H 484 H D MPV 10.7 H 10.6 H Immature Gran % (Auto) 0.4 0.3 Neut % (Auto) 63.8 69.8 Lymph % (Auto) 23.7 20.0 [place] % (Auto) 7.7 6.6 Eos % (Auto) 3.7 2.8 Baso % (Auto) 0.7 0.5 Lymph # (Auto) 1.66 1.90 [place] # (Auto) 0.5 0.6 Eos # (Auto) 0.3 0.3 Baso # (Auto) 0.1 0.1 Abs Immat Gran (auto) 0.03 0.03 Absolute Neuts (auto) 4.5 6.6 Absolute Nucleated RBC 0.000 0.000 Band Neutrophils % Not Reportable Not Reportable Nucleated RBC % 0.0 0.0 Platelet Estimate Increased Increased Hypochromasia 1+ 1+ Anisocytosis 1+ 2+ Ovalocytes 1+ 2+ Carlos Cells 1+ Schistocytes Rare Not Reportable Absolute Retic Percent Retic Immature Retic Fraction Retic Hgb Content PT 14.7 INR 1.1 APTT 36.6 Sodium 136 L 138 Potassium 4.0 4.6 Chloride 108 H 106 Carbon Dioxide 23 25 Anion Gap 5 7 BUN 13 14 D Creatinine 0.72 0.68 L Estim Creat Clear Calc 103 108 Estimated GFR > 60 > 60 Glucose 76 79 Calcium 8.4 8.6 Iron 24 L TIBC 399 % Saturation 6 L Ferritin 6.69 Total Bilirubin 0.2 AST 41 H ALT 39 H Alkaline Phosphatase 61 Total Protein 7.0 Albumin 3.8 Vitamin B12 Folate TSH (Reflex) 1.120 Blood Type B Positive Antibody Screen Negative Crossmatch See Detail 12/21/24 14:16 WBC RBC Hgb Hct MCV MCH MCHC RDW Plt Count MPV Immature Gran % (Auto) Neut % (Auto) Lymph % (Auto) [place] % (Auto) Eos % (Auto) Baso % (Auto) Lymph # (Auto) [place] # (Auto) Eos # (Auto) Baso # (Auto) Abs Immat Gran (auto) Absolute Neuts (auto) Absolute Nucleated RBC Band Neutrophils % Nucleated RBC % Platelet Estimate Hypochromasia Anisocytosis Ovalocytes Carlos Cells Schistocytes Absolute Retic 0.04 Percent Retic 1.25 Immature Retic Fraction 10.1 Retic Hgb Content 17.7 L PT INR APTT Sodium Potassium Chloride Carbon Dioxide Anion Gap BUN Creatinine Estim Creat Clear Calc Estimated GFR Glucose Calcium Iron TIBC % Saturation Ferritin Total Bilirubin AST ALT Alkaline Phosphatase Total Protein Albumin Vitamin B12 360.0 Folate 8.0 TSH (Reflex) Blood Type Antibody Screen Crossmatch Discharge Plan Discharge Attending physician on discharge: Guanaco Roy Consulting providers: Elmer Bangura Discharging Clinician: Rosario Hess Patient Disposition: Home Activity: december shower Diet: heart healthy Discharge Instructions: You were admitted to the hospital with anemia. You saw DR Bangura, employee's representative. You received blood transfusion and iron infusion. Your hemoglobin improved from 6.5 to 7.7. You received vitamin B12 1 mg injection on 12/21. He recommended you to take oral iron 65 mg twice a day with vitamin-C 500 mg daily. Please follow-up with Dr Bangura in the office. Patient Instructions: Antibiotic Form Patient Language: Swedish Stand Alone Forms: General Discharge Information Follow-up/Referrals: Elmer Bangura MD [Physician] - 2 Weeks Discharge Medications: Continued rizatriptan [Maxalt] 10 mg tablet 10 mg PO .COMPLEX PRN (Reason: migraine headache) Rx Instructions: 10 mg orally take 1 tab at onset of headache; if no relief may repeat 1 tab after at least 2 hrs; max = 3 tabs/24 hr PRN; naproxen sodium 220 mg tablet 440 mg PO BID Date of admission: 12/21/24 15:46 Primary Care Provider: HiJustina Admitting Provider: Guanaco Roy Attending physician on admission: Guanaco Roy Condition: Stable Quality VTE Prophylaxis VTE prophylaxis: mechanical ordered Hospitalist MIPS Heart Failure (Exclusion) Patient has history of Heart Transplant or Left Ventricular Assistive Device?: No IF YES, STOP HERE Heart Failure (Qualifier) Patient has current or prior documentation of LVEF less than or equal to 40%, or mod/servere depressed LVSF?: No IF NO, STOP HERE
== END 2024-12-22 14:03 | disposition home or self-care (01) ==
LOC: ANHED 15:05 → ANH3MEDSUR 16:28
PROVIDERS: Student in an Organized Health Care Education/Training Program; Admitting Provider General Practice; Emergency Provider Emergency Medicine; Visit Provider General Practice
DX: D50.9 Iron deficiency anemia, unspecified (principal); G47.30 Sleep apnea, unspecified; E72.12 Methylenetetrahydrofolate reductase deficiency; Z79.899 Other long term (current) drug therapy; Z98.84 Bariatric surgery status
CPT/HCPCS: 36415; 36430; 80048; 80053; 82607; 82728; 82746; 83540; 83550; 84443; 85025; 85046; 85610; 85730; 86850; 86900; 86901; 86923; 93005; 96361; 96372; 96374; 96375; 99285; A9270; G0378; G0379; J1756; J3420; J7050; P9016

== ENCOUNTER 2024-12-29 22:48 | Emergency (ER) | payer OTHER, SELFPAY ==
[2024-12-29 22:51] VITALS: BP 145/84; PULSE 91; RESP 18; TEMP 36.8; O2SAT 100
--- OUTSIDE RECORDS SUMMARY | 2024-12-29 22:51 | XMS_ITS | Clinical Summary ---
Author Organization [facility] Address [address] [place] [address] Care Team Providers Care Outside Plant Technician Name Role Phone Unavailable Primary Care Provider Unavailabl e Source Comments [facility],non-owned Affiliates and Associated Physician Practices is amultiple site organization consisting of ambulatory clinics and hospital sitesin [place], [place], [place] and [place]. This disclosure is being madepursuant to the Care Everywhere program and may not contain all information available regarding this patient. 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
--- OUTSIDE RECORDS SUMMARY | 2024-12-29 22:51 | XMS_ITS | Clinical Summary ---
Author Organization [facility] Address [address] [place] [address] Care Team Providers Care Workforce Services Representative Name Role Phone Robin Barron NP Primary Care Provider [phone] Allergies Active Allergy Reactions Criticality Noted Date [...] on file Legal Sex Female 8:54 PM SKIVER OPERATOR Gender Identity Female 02/21/2022 4:52 AM CDT Sexual Orientation Straight 02/21/2022 4: 52 AM CDT Obstetrics History Last Filed Vital Signs Vital Sign Reading Time Taken Comments Blood Pressure 118/79 10/13/2023 11:58 AM CDT Pulse 84 10/13/2023 11:58 AM CDT Temperature 37.2 C (98.9 F) 06/19/2022 1:18 PM SKIVER OPERATOR Respiratory Rate - - Oxygen Saturation 100% 06/19/2022 1:18 PM SKIVER OPERATOR Inhaled Oxygen Concentration - - Weight 93 kg (205 lb) 10/13/2023 11:58 AM CDT Height 162.6 cm (5' 4) 10/13/2023 11:58 AM CDT Body Mass Index [...] patient's age to complete this topic Insurance [facility] Care Teams Workforce Services Representative Relationship Specialty Start Date End Date Robin Barron, CASE RESOURCE MANAGER [address] [place] [address] PCP - General Family Medicine 10/13/23
--- OUTSIDE RECORDS SUMMARY | 2024-12-29 22:51 | XMS_ITS | Clinical Summary ---
Author Organization [address] Address [address] [place] [phone] Care Team Providers Care Audience Development Manager Name Role Phone Unavailable Primary Care Provider [...] Active Active Problems No known active problems Encounters Date Type Department Care Team Description 12/29/2024 Orders Only [facility] Oncology and Hematology - [place] [address] [place] [address] Elmer Bangura MD Chronic anemia (Primary Dx) from Last 3 Months Immunizations Immunization Administration Dates Next Due (PFIZER)(12 YR UP) COVID-19 VACCINE - EMERGENCY USE AUTHORIZATION, MRNA, [id number](PF) 30 MCG/0.3 ML IM SUSP 03/27/2021 Social History Tobacco Use Types Packs/Day Years Used Date Smoking Tobacco: Never Smokeless Tobacco: Never Tobacco Cessation:Counseling Given: Not Answered Comments Unknown Sex and Gender Information Value Date Recorded Sex Assigned at Not on file Legal 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:47 PM COBBLER SOLE Gender Identity Not on file Sexual Orientation Not on file Last Filed Vital Signs Vital Sign Reading Time Taken Comments Blood Pressure 131/84 09/01/2023 11:48 AM COBBLER SOLE Pulse 72 09/01/2023 11:48 AM COBBLER SOLE Temperature 35.9 C (96.6 F) 09/01/2023 11:48 AM COBBLER SOLE Respiratory Rate 10 09/01/2023 11:48 AM COBBLER SOLE Oxygen Saturation 100% 06/05/2023 10:18 AM CDT Inhaled Oxygen Concentration - - Weight 101.6 kg (224 lb) 09/01/2023 11:48 AM COBBLER SOLE Height 162.6 cm (5' 4) 05/28/2022 12:03 PM CDT Body Mass Index 38.45 05/28/2022 12:03 PM CDT Plan of Treatment Upcoming Encounters Date Type Department Care Team (Late st Contact Info) Description 03/31/2025 11:30 AM CDT Office Visit [facility] Oncology and Hematology - [place] [address] [facility] [address] [place] [address] Elmer Bangura MD [address] [facility] [address] [place] [address] Health Maintenance Due Date Last Done Comments Preventative Visit-Managed Medicaid 2006 HPV/Cotest (21-29) 02/25/2008 HEPATITIS B VACCINES (2 of 3 - 19+ 3-dose series) 02/22/2015 01/25/2015 CERVICAL CANCER SCREENING 2017 HPV/Cotest (30-65) 2017 PAP SMEAR 2017 INFLUENZA VACCINE (#1) 2024 , 04/28/2020, 04/25/2019, Additional history exists COVID-19 Vaccine (2 - 2023- season) 2024 03/27/2021 DTAP/TDAP/TD VACCINES (3 - Td or Tdap) 12/28/2028 12/28/2018, 12/28/2018 HPV VACCINES Aged Out No longer eligi ble based on patient's age to complete this topic Insurance [employer] [place]
--- OUTSIDE RECORDS SUMMARY | 2024-12-29 22:51 | XMS_ITS | Referral Summary ---
Author Organization [facility] al Address [address] [place] [address] Care Team Providers Care Adult Basic Education Teacher Name Role Phone Robin aBrron NP Primary Care Provider [phone] Allergies Active Allergy Reactions Criticality Noted Date [...] on file Legal Sex Female 8:54 PM SENIOR ANALYTIC CONSULTANT Gender Identity Female 02/21/2022 4:52 AM CDT Sexual Orientation Straight 02/21/2022 4: 52 AM CDT Last Filed Vital Signs Vital Sign Reading Time Taken Comments Blood Pressure 118/79 10/13/2023 11:58 AM CDT Pulse 84 10/13/2023 11:58 AM CDT Temperature 37.2 C (98.9 F) 06/19/2022 1:18 PM SENIOR ANALYTIC CONSULTANT Respiratory Rate - - Oxygen Saturation 100% 06/19/2022 1:18 PM SENIOR ANALYTIC CONSULTANT Inhaled Oxygen Concentration - - Weight 93 kg (205 lb) 10/13/2023 11:58 AM CDT Height 162.6 cm (5' 4) 10/13/2023 11:58 AM CDT Body Mass Index 35.19 10/13/2023 11:58 AM CDT Plan of Treatment Not on file Insurance [facility] Care Teams Adult Basic Education Teacher Relationship Specialty Start Date End Date Robin Barron NP [address] [place] [address] MARTIR BERRIOS [id number] PCP - General Family Medicine 10/13/23
--- OUTSIDE RECORDS SUMMARY | 2024-12-29 22:52 | XMS_ITS | Encounter Summary ---
Author Organization [facility] [employer] [facility] Address [address] [place] [address] Care Team Providers Care Solar Development Engineer Name Role Phone Unavailable Primary Care Provider Unavailabl e Encounter Details Date Type Department Care Team (Late st Contact Info) Description 12/29/2024 Orders Only [facility] Oncology and Hematology - [place] [address] [place] [address] Elmer Bangura MD [address] [place], [place] [address] [address] [place] [phone] Chronic anemia (Primary Dx) Social History Tobacco Use Types Packs/Day Years Used Date Smoking Tobacco: Never Smokeless Tobacco: Never Comments Unknown Sex and Gender Information Value Date Recorded Sex Assigned at Not on file Legal 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:47 PM TRUST MANAGER Gender Identity Not on file Sexual Orientation Not on file documented as of this encounter Plan of Treatment Upcoming Encounters Date Type Department Care Team (Late st Contact Info) Description 03/31/2025 11:30 AM CDT Office Visit [facility] Oncology and Hematology - [place] [address] [place] [address] Elmer Bangura MD [address] [facility] [address] [place] [address] Scheduled Orders Name Type Priority Associated Diagnoses Orde r Schedule CBC WITH DIFFERENTIAL Lab Routine Chronic anemia Expected: 12/29/2024, Expires: 12/29/2025 COMPREHENSIVE METABOLIC PANEL Lab Routine Chronic anemia Expected: 12/29/2024, Expires: 12/29/2025 IRON, TIBC, AND PERCENT SATURATION Lab Routine Chronic anemia Expected: 12/29/2024, Expires: 12/29/2025 FERRITIN Lab Routine Chronic anemia Expected: 12/29/2024, Expires: 12/29/2025 VITAMIN B12 AND FOLATE Lab Routine Chronic anemia Expected: 12/29/2024, Expires: 12/29/2025 documented as of this encounter Visit Diagnoses Diagnosis Chronic anemia- Primary Anemia, unspecified documented in this encounter
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
--- OUTSIDE RECORDS SUMMARY | 2024-12-30 01:27 | XMS_ITS | Referral Summary ---
Author Organization [facility] al Address [address] [place] [address] Care Team Providers Care Pool Coordinator Name Role Phone Robin Barron NP Primary Care Provider [phone] Allergies Active Allergy Reactions Criticality Noted Date [...] on file Legal Sex Female 8:54 PM CLEAN UP WORKER Gender Identity Female 02/21/2022 4:52 AM CDT Sexual Orientation Straight 02/21/2022 4: 52 AM CDT Last Filed Vital Signs Vital Sign Reading Time Taken Comments Blood Pressure 118/79 10/13/2023 11:58 AM CDT Pulse 84 10/13/2023 11:58 AM CDT Temperature 37.2 C (98.9 F) 06/19/2022 1:18 PM CLEAN UP WORKER Respiratory Rate - - Oxygen Saturation 100% 06/19/2022 1:18 PM CLEAN UP WORKER Inhaled Oxygen Concentration - - Weight 93 kg (205 lb) 10/13/2023 11:58 AM CDT Height 162.6 cm (5' 4) 10/13/2023 11:58 AM CDT Body Mass Index 35.19 10/13/2023 11:58 AM CDT Plan of Treatment Not on file Insurance [facility] IDPA Care Teams Pool Coordinator Relationship Specialty Start Date End Date Robin Barron NP [address] [place] [address] M[place] BERRIOS [address] PCP - General Family Medicine 10/13/23
--- OUTSIDE RECORDS SUMMARY | 2024-12-30 01:27 | XMS_ITS | Clinical Summary ---
Author Organization [address] Address [address] [place] [address] Care Team Providers Care Manager Simulation Name Role Phone Unavailable Primary Care Provider [...] Department Care Team Description 12/29/2024 Orders Only [facility] Oncology and Hematology - [place] [address] [place] [address] Elmer Bangura MD Chronic anemia (Primary Dx) from Last 3 Months Immunizations Immunization Administration Dates Next Due (PFIZER)(12 YR UP) COVID-19 VACCINE - EMERGENCY USE AUTHORIZATION, MRNA, [id number](PF) 30 MCG/0.3 ML IM SUSP 03/27/2021 Social History Tobacco Use Types Packs/Day Years Used Date Smoking Tobacco: Never Smokeless Tobacco: Never Tobacco Cessation:Counseling Given: Not Answered Comments Unknown Sex and Gender Information Value Date Recorded Sex Assigned at Not on file Legal 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:47 PM FRUIT OR NUT FARMER Gender Identity Not on file Sexual Orientation Not on file Last Filed Vital Signs Vital Sign Reading Time Taken Comments Blood Pressure 131/84 09/01/2023 11:48 AM FRUIT OR NUT FARMER Pulse 72 09/01/2023 11:48 AM FRUIT OR NUT FARMER Temperature 35.9 C (96.6 F) 09/01/2023 11:48 AM FRUIT OR NUT FARMER Respiratory Rate 10 09/01/2023 11:48 AM FRUIT OR NUT FARMER Oxygen Saturation 100% 06/05/2023 10:18 AM CDT Inhaled Oxygen Concentration - - Weight 101.6 kg (224 lb) 09/01/2023 11:48 AM FRUIT OR NUT FARMER Height 162.6 cm (5' 4) 05/28/2022 12:03 PM CDT Body Mass Index 38.45 05/28/2022 12:03 PM CDT Plan of Treatment Upcoming Encounters Date Type Department Care Team (Late st Contact Info) Description 03/31/2025 11:30 AM CDT Office Visit [facility] Oncology and Hematology - [place] [address] [facility] [address] [place] [address] Elmer Bangura MD [address] [facility] [address] [place] [address] Health Maintenance Due Date Last [...]
--- OUTSIDE RECORDS SUMMARY | 2024-12-30 01:27 | XMS_ITS | Encounter Summary ---
Author Organization [facility] [employer] [facility] Address [address] [place] [address] Care Team Providers Care Errand Runner Name Role Phone Unavailable Primary Care Provider Unavailabl e Encounter Details Date Type Department Care Team (Late st Contact Info) Description 12/29/2024 Orders Only [facility] Oncology and Hematology - [place] [address] [place] [address] Elmer Bangura MD [address] [place], [place] [email or web address][MD] [address] [place] [address] Chronic anemia (Primary Dx) Social History Tobacco Use Types Packs/Day Years Used Date Smoking Tobacco: Never Smokeless Tobacco: Never Comments Unknown Sex and Gender Information Value Date Recorded Sex Assigned at Not on file Legal 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:47 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
--- OUTSIDE RECORDS SUMMARY | 2024-12-30 01:27 | XMS_ITS | Clinical Summary ---
Author Organization [facility] Address [address] [place] [address] Care Team Providers Care Soil Analyst Name Role Phone Unavailable Primary Care Provider Unavailabl e Source Comments [facility],non-owned Affiliates and Associated Physician Practices is amultiple site organization consisting of ambulatory clinics and hospital sitesin [place], [place], [place] and [place]. This disclosure is being madepursuant to the Care Everywhere program and may not contain all information available regarding this patient. Last updated 18.[facility] Allergies Active Allergy Reactions Criticality Noted Date [...] on file Legal Sex Female 5:42 AM TRAFFIC SAFETY ADMINISTRATOR Gender Identity Not on file Sexual Orientation [...] [place] [facility] [facility]
--- OUTSIDE RECORDS SUMMARY | 2024-12-30 01:27 | XMS_ITS | Clinical Summary ---
Author Organization [facility] Address [address] [place] [address] Care Team Providers Care Room Worker Name Role Phone Robin Barron NP Primary Care Provider [phone] Allergies Active Allergy Reactions Criticality Noted Date [...] on file Legal Sex Female 8:54 PM CAD ADMINISTRATOR Gender Identity Female 02/21/2022 4:52 AM CDT Sexual Orientation Straight 02/21/2022 4: 52 AM CDT Obstetrics History Last Filed Vital Signs Vital Sign Reading Time Taken Comments Blood Pressure 118/79 10/13/2023 11:58 AM CDT Pulse 84 10/13/2023 11:58 AM CDT Temperature 37.2 C (98.9 F) 06/19/2022 1:18 PM CAD ADMINISTRATOR Respiratory Rate - - Oxygen Saturation 100% 06/19/2022 1:18 PM CAD ADMINISTRATOR Inhaled Oxygen Concentration - - Weight 93 [...] patient's age to complete this topic Insurance [facility] Care Teams Room Worker Relationship Specialty Start Date End Date Robin Barron, FILING CLERK [address] [place] [address] PCP - General Family Medicine 10/13/23
--- NOTE | 2024-12-30 01:49 | ED_ITS ---
HPI - General Adult General Chief complaint: Unspecified Stated complaint: post op pain Time Seen by Provider: 12/30/24 01:11 History of Present Illness HPI narrative: 39-year-old female with a past medical history including iron deficiency anemia, previous gastric bypass, recent plastic surgery with back lift done at [facility] 3 weeks ago. Patient has been having some pain from her procedure and required 1 drainage of some seroma fluid from her left-sided low upper back previously. She contacted per plastic surgeon and has an appointment this morning at [facility] but she was not able to see him during the evening so she came to the ER for some pain medications. She states that she tried calling and some medications from her doctor but was not able to get them from the pharmacy as they were closed. Patient has been trying some muscle relaxers not having significant relief of symptoms. Previously she had some narcotic pain medicines from the surgery that has run out as well. Denies any other symptoms at this time aside from pain at her surgical site. No fever, chills, shortness a breath, chest pain, abdominal pain, lower back pain, nausea vomiting. Related Data Home Medications ?Medication ?Instructions ?Recorded ?Confirmed ?Last Taken ?Type naproxen sodium 220 mg tablet 440 mg PO BID pain 12/21/24 12/21/24 Unknown History rizatriptan 10 mg tablet (Maxalt) 10 mg PO .COMPLEX PRN migraine 12/21/24 12/21/24 Unknown History headache Allergies Allergy/AdvReac Type Severity Reaction Status Date / Time No Known Allergies Allergy Verified 12/29/24 22:54 Review of Systems Review of Systems: As reviewed above in HPI [facility] Past Medical History Medical History Vaginal delivery 11-23-2005, 40 wks 1. M, 8lbs 2oz, Standard Vaginal Delivery Degenerative disc disease Constipation Anemia FAITH (generalized anxiety disorder) Candidiasis of vagina BV (bacterial vaginosis) Depressive disorder Sleep apnea GBS (group B streptococcus) infection HSV (herpes simplex virus) infection Heterozygous MTHFR mutation C677T Obesity FGR ( growth retardation) History of chronic constipation Surgical History Surgical History Gastric bypass status for obesity Gastric bypass : 06-03-2015 History of gastric bypass Family History Family History Mother Asthma Other Depression Diabetes mellitus Heart disease Hypertension Social History Social History Social History: Works 2 jobs 5-6 days per week, 12 hour shifts. Smoking status: Never smoker Second hand tobacco smoke exposure: No Alcohol intake: current Drinks per week: 1 Substance use: never Substance use type: does not use Do You Feel Safe in your Home?: Yes Lack of Transportation: No Lack of Food: Never True Current Housing: I Have Housing Concerned About Future Housing: No Difficulty Paying Gas/Electric Bills: No Difficulty Paying for Meds: No Currently Unemployed: No Education: Associate Degree Difficulty w/ Childcare or Family Care: No Living arrangements: with family Occupation/Education: occupation Gender identity (if verbalized by the patient): Female Sexual Orientation (if Verbalized by the Patient): Straight or Heterosexual Spiritual care concerns: No Agree to blood products: Yes Exam Narrative: GENERAL: [Well-appearing, well-nourished, and in no acute distress.] HEAD: [Normocephalic, atraumatic.] EYES: [PERRLA and EOMI.] ENT: Nares clear, no rhinorrhea or epistaxis. Mucous membranes moist. NECK: Supple. CHEST: [Clear to auscultation. No respiratory distress.] HEART: [Regular rate and rhythm]. No murmur heard. [Normal peripheral pulses.] ABDOMEN: [Soft, nondistended], [nontender], [No rigidity or guarding] EXTREMITIES: Normal range of motion. [No edema.] SKIN: Postop surgical markings and scar from the upper back between axillas without any dehiscence, bleeding or wound infection signs. Clean dry and intact. Mild tenderness to palpation around the left side without any overlying fluctuance, erythema or any signs of cellulitis. NEURO: [No focal deficits]. Alert and oriented [x3.] PSYCH: [Normal mood and affect.] Course Vital Signs Vital signs: Vital Signs Temperature 36.8 C 12/29/24 22:51 Pulse Rate 91 12/29/24 22:51 Respiratory Rate 18 12/29/24 22:51 Blood Pressure 145/84 H 12/29/24 22:51 Pulse Oximetry 100 12/29/24 22:51 Oxygen Delivery Room Air 12/29/24 22:51 Temperature 36.8 C 12/29/24 22:51 Pulse Rate 81 12/30/24 02:33 Respiratory Rate 20 12/30/24 02:33 Blood Pressure 124/82 12/30/24 02:33 Pulse Oximetry 99 12/30/24 02:33 Oxygen Delivery Room Air 12/29/24 22:51 Medical Decision Making MDM Narrative Medical decision making narrative: 39-year-old female presenting to the emergency department for evaluation of some postoperative pain. She had a back lift done 3 weeks ago at [facility] by Plastic surgery. She had some fluid removed from a seroma in her left-sided low back that has helped improve her pain previously. She states she has run out of her narcotic pain medications at home and has new prescriptions very for seed cone picker at her pharmacy but they are closed and she is contacted her plastic surgeon and has an appointment this morning but was not able to be seeing her last evening. Patient presents requesting some pain medications to get her through the night to make her appointment. She is not any acute distress but does have some appreciable pain from her previous incision sites that appear clean dry and intact without any dehiscence or active signs of wounds or fluctuant masses or palpable deformity. Patient is hemodynamically stable has no infectious signs or symptoms and overall is well-appearing. I believe we can safely have the patient treated from a pain management perspecti ve and have her follow-up in the next several hours with her doctor appointment this morning. Patient is agreeable with this plan of care and no further workup per diagnostics are indicated at this time. She was given intramuscular Dilaudid and Toradol as well as oral Zofran K she gets nauseous from the Dilaudid she states she has not had this before. Patient will be discharged home after making sure that her pain is better and will follow-up with her doctor in several hours. Medical Records Medical records reviewed: Yes I reviewed the external patient's medical records. Vital Signs Vital Signs: Vital Signs Temperature 36.8 C 12/29/24 22:51 Pulse Rate 91 12/29/24 22:51 Respiratory Rate 18 12/29/24 22:51 Blood Pressure 145/84 H 12/29/24 22:51 Pulse Oximetry 100 12/29/24 22:51 Oxygen Delivery Room Air 12/29/24 22:51 Temperature 36.8 C 12/29/24 22:51 Pulse Rate 81 12/30/24 02:33 Respiratory Rate 20 12/30/24 02:33 Blood Pressure 124/82 12/30/24 02:33 Pulse Oximetry 99 12/30/24 02:33 Oxygen Delivery Room Air 12/29/24 22:51 Discharge Plan Discharge Clinical Impression: Postoperative back pain Patient Disposition: Home Condition: Stable Instructions: Antibiotic Form Additional Instructions: We have given you some intramuscular shots of high strength pain medicines. Follow-up with your plastic surgeon this morning for further care and evaluation. Return with any emergent concerns. Patient Language: Omani Prescriptions: No Action rizatriptan [Maxalt] 10 mg tablet 10 mg PO .COMPLEX PRN (Reason: migraine headache) Rx Instructions: 10 mg orally take 1 tab at onset of headache; if no relief may repeat 1 tab after at least 2 hrs; max = 3 tabs/24 hr PRN; naproxen sodium 220 mg tablet 440 mg PO BID Follow-up/Referrals: Hi,Justina Harry, HOGSHEAD HOOPER [Primary Care Provider] - Time of Disposition: 01:56
[2024-12-30] MEDS: ONDANSETRON HCL ODT 4 MG TABLET PO (02:00)
[2024-12-30] MEDS: KETOROLAC 30 MG/ML VIAL (*BKC) IM (02:01)
[2024-12-30] MEDS: HYDROmorphone HCL INJ (*CRX) 2 MG/ML VIAL 1 MG IM (02:04)
[2024-12-30 02:33] VITALS: BP 124/82; PULSE 81; RESP 20; O2SAT 99
== END 2024-12-30 02:35 | disposition home or self-care (01) ==
PROVIDERS: Emergency Provider Student in an Organized Health Care Education/Training Program
DX: G89.18 Other acute postprocedural pain (principal); M54.6 Pain in thoracic spine; G47.30 Sleep apnea, unspecified; Z98.84 Bariatric surgery status; F41.1 Generalized anxiety disorder; Z86.2 Personal history of diseases of the blood and blood-forming organs and certain disorders involving the immune mechanism
CPT/HCPCS: 96372; 99284; A9270; J1171; J1885

== ENCOUNTER 2025-04-26 12:24 | Outpatient (CLI) | payer MEDICAID, SELFPAY ==
--- OUTSIDE RECORDS SUMMARY | 2025-04-26 12:38 | XMS_ITS | Clinical Summary ---
Author Organization [address] Address [address] [place] [id number] Care Team Providers Care Atomizer Assembler Name Role Phone Unavailable Primary Care [...] Encounters Date Type Department Care Team Description 03/27/2025 Orders Only [facility] [place] [address] [place] [address] Elmer Bangura MD from Last 3 Months Immunizations Immunization Administration Dates Next Due (PFIZER)(12 YR UP) COVID-19 VACCINE - EMERGENCY USE AUTHORIZATION, MRNA, [id number](PF) 30 MCG/0.3 ML IM SUSP 03/27/2021 Social History Tobacco Use Types Packs/Day Years Used Date Smoking Tobacco: Never Smokeless Tobacco: Never Tobacco Cessation:Counseling Given: Not Answered Comments Unknown Sex and Gender Information Value Date Recorded Sex Assigned at Not on file Legal 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:47 PM NUTRITION TECHNICIAN Gender Identity Not on file Sexual Orientation Not on file Last Filed Vital Signs Vital Sign Reading Time Taken Comments Blood Pressure 131/84 09/01/2023 11:48 AM NUTRITION TECHNICIAN Pulse 72 09/01/2023 11:48 AM NUTRITION TECHNICIAN Temperature 35.9 C (96.6 F) 09/01/2023 11:48 AM NUTRITION TECHNICIAN Respiratory Rate 10 09/01/2023 11:48 AM NUTRITION TECHNICIAN Oxygen Saturation 100% 06/05/2023 10:18 AM CDT Inhaled Oxygen Concentration - - Weight 101.6 kg (224 lb) 09/01/2023 11:48 AM NUTRITION TECHNICIAN Height 162.6 cm (5' 4) 05/28/2022 12:03 PM CDT Body Mass Index 38.45 05/28/2022 12:03 PM CDT Plan of Treatment Upcoming Encounters Date Type Department Care Team (Late st Contact Info) Description 05/03/2025 11:00 AM CDT Office Visit [facility] [place] [address] [facility] [address] [place] [address] Elmer Bangura MD [address] [place] [address] Health Maintenance Due Date Last Done Comments Preventative Visit-Managed Medicaid 2006 HPV/Cotest (21-29) 02/25/2008 HPV VACCINES (1 - 3-dose SCD M series) 2014 HEPATITIS B VACCINES (2 of 3 - 19+ 3-dose series) 02/22/2015 01/25/2015 CERVICAL CANCER SCREENING 2017 HPV/Cotest (30-65) 2017 PAP SMEAR 2017 INFLUENZA VACCINE (#1) 2025 , 04/28/2020, 04/25/2019, Additional history exists COVID-19 Vaccine (2 - 2024-2 6 season) 2025 03/27/2021 DTAP/TDAP/TD VACCINES (3 - T d or Tdap) 12/28/2028 12/28/2018, 12/28/2018 Procedures Procedure Name Priority Date/Time Associated Diagnosis Comments COMPREHENSIVE METABOLIC PANEL Routine 03/24/2025 12:33 PM CDT from Last 3 Months Results * COMPREHENSIVE METABOLIC PANEL (03/24/2025 12:33 PM CDT) Blood Elmer Bangura MD CHEMISTRY ORDERABLES Final Resu lt from Last 3 Months Insurance [employer] [place]
--- OUTSIDE RECORDS SUMMARY | 2025-04-26 12:38 | XMS_ITS | Clinical Summary ---
Author Organization [facility] Address [address] [place] [address] Care Team Providers Care Jute Bag Cutting Machine Operator Name Role Phone Unavailable Primary Care Provider Unavailabl e Source Comments [facility],non-owned Affiliates and Associated Physician Practices is amultiple site organization consisting of ambulatory clinics and hospital sitesin [place], [place], [place] and [place]. This disclosure is being madepursuant to the Care Everywhere program and may not contain all information available regarding this patient. 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
--- OUTSIDE RECORDS SUMMARY | 2025-04-26 12:38 | XMS_ITS | Patient Health Record ---
Author Organization [facility] Address [address] [place] [address] Care Team Providers Care Tin Worker Name Role Phone Panda Isaacs Unavailable [phone] Reason For Referral No Information Medications Medication SIG (Take, Route, Frequency, Duration) Notes Start Date End Date Status Naproxen 500 MG Tablet Oral 09/11/2023 Active Ondansetron HCl 4 MG Tablet Oral 09/11/2023 Active Mounjaro 5 MG/0.5ML Solution Pen-injector Subcutaneous *Reorder from [employer] for eRx and Interaction Alerts* 09/11/2023 Active Acyclovir 800 MG Tablet Oral 09/11/2023 Active Ondansetron 4 MG Tablet Disintegrating Oral 09/11/2023 Active Immunizations Vaccine Route Administration Date Status Comme nts Influenza virus vaccine, quadrivalent (IIV4), split virus, 0.25 mL dosage Unknown 05/02/2019 Administered Social History Social History Additional Details Category Social Info Options Details Migrated Social History Migrated Social History Alcohol Intake: Occasional 10/19/2019,Tobacco Years: Never smoker 10/19/2019 Plan Of Treatment No Information Insurance Providers Payer Name Payer Address Payer Phone Subscriber Number Group Number Insured Name Patient Relationship to Insured Coverage Start Date Coverage End Date [place] l Medicaid [address] [address] [place] [address] [id number] CIERRA GERBER Self - patient is the insured Medical (General) History Surgical History Surgery Date(Month/Year) Other 06/17/2015 Any surgical history 06/17/2015
--- OUTSIDE RECORDS SUMMARY | 2025-04-26 12:38 | XMS_ITS | Clinical Summary ---
Author Organization [facility] Address [address] [place] [address] Care Team Providers Care .Net Architect Name Role Phone Robin Barron NP Primary Care Provider [phone] Allergies No known active allergies Medications naproxen (NAPROSYN) 500 mg tablet TAKE [...] for nausea 20 tablet 3 4 Active cyclobenzaprine (FLEXERIL) 5 mg tablet Take 1 tablet (5 mg total) by mouth 3 (three) times a day as needed 5 Active medroxyPROGESTERone (Provera) 10 mg tabletIndications:M enorrhagia Take 1 tablet (10 mg total) by mouth daily 30 tablet 3 Active Active Problems Problem Noted Date Diagnosed Date 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 Referred by outside OBGYN. -Per 6mo menstrual calendar review, discussed cycles have overall been regular, although heavy. -VS stable, asymptomatic. S/p blood transfusion 12/21. -Discussed med management options given hx of portal vein thrombosis - recommend provera vs aygestin. Plan: -Rx provera 10mg daily -Follow up in family planning clinic for hysterectomy consult, EMB -CBC, TSH, STI screen today Vitamin D deficiency 06/16/2016 Intestinal malabsorption 08/31/2015 Hx of PVT (portal vein thrombosis) 08/30/2015 History of bariatric surgery 04/18/2015 Resolved Problems Problem Noted Date Diagnosed Date Resolved Date BMI 40.0-44.9, adult 11/30/2015 01/15/2023 025 Morbid obesity 06/15/2014 03/03/2025 Encounters Date Type Department Care Team Description 03/02/2025 8:30 AM CDT Office Visit [facility] [address] [place] [address] 3rd Floor [address] [place] [phone] Abnormal uterine bleeding (AUB) (Primary Dx); Endometrial polyp; Preop examination; Moderate major depression (HCC) 02/22/2025 8:00 AM CDT - 02/22/2025 11:59 PM CDT Hospital Encounter [facility] Ul[facility]ound [address] [place] [id number] Abnormal uterine bleeding (AUB) Discharge Disposition: Discharge to home or self care 02/22/2025 Telephone [facility] [address] [place] [phone] Caitlin Beasley DO 02/02/2025 8:30 AM CDT Office Visit [facility] [address] [place] [address] Outpatient Health 3rd Floor [address] [place] [phone] Abnormal uterine bleeding (AUB) (Primary Dx); H/O gastric bypass; Portal vein thrombosis; Morbid obesity (HCC) 01/31/2025 Telephone [facility] [address] [place] [address] Outpatient Health 3rd Floor [address] [place] [phone] Srinivasan Norman 01/25/2025 Telephone [facility] [address] [place] [address] 3rd Floor [address] [place] [phone] Cherry Garibay LPN 01/25/2025 Telephone [facility] [address] [place] [address] 3rd Floor [address] [place] [phone] Srinivasan Norman from Last 3 Months Immunizations Immunization Administration Dates Next Due DTP 03/02/1992, 9,1987,09/14,1987 HPV, Quadrivalent 04/01/2007 Hep A / Hep B 01/30/2016 Hep B, Adolescent or Pediatric 09/09/1999,1998,06/07/1998 Hep B, Unspecified 01/25/2015 HiB 12/05/1988 Influenza, Quadrivalent, Spl it, Intramuscular 04/25/2019 Influenza, Whole 07/30/2005 MMR 12/10/2015,01/25/2015,06/20/1992 Measles 05/28/1989 Mumps 12/05/1988 OPV 03/02/1992, 9,1987,06/21 PPD TEST, PPD, MULTIPUNCTURE 12/13/2017,12/29/19 16 Pfizer SARS-CoV-2 Monovalent Vaccination (12+ Yrs) PURPLE 03/27/2021 Rubella 08/15/1988 Td, Unspecified 12/28/2018 Td, adsorbed 02/01/1997 Tdap 10/16/2020,12/28/2018,12/10/2015 Varicella 12/11/2015,01/25/2015 Surgical History Surgery Date Site/Laterality Comments LUIS FERNANDO-EN-Y PROCEDURE N/A 2016 Family History Medical History Relation Name Comments Hypertension Mother Family history of hypertension - (Added by TW Conv) Hypertension Other 1 Family history of hypertension - Relation: Grandparent (Added by TW Conv) Diabetes Other 2 Family history of diabetes mellitus - Relation: Grandparent (Added by [employer] Conv) Relation Name Status Comments Mother Other 1 Other 2 Social History Tobacco Use Types Packs/Day Years Used Date Smoking Tobacco: Never Smokeless Tobacco: Never Tobacco Cessation:Counseling Given: Not Answered Humiliation, Afraid, Rape, and Kick questionnair e Answer Date Recorded Within the last year, have y ou been afraid of your partner or ex-partner? No 01/12/2025 Within the last year, have y ou been humiliated or emotionally abused in other ways by your partner or ex-partner? No Within the last year, have y ou been kicked, hit, slapped, or otherwise physically hurt by your partner or ex-partner? No 01/12/2025 Within the last year, have y ou been raped or forced to have any kind of sexual activity by your partner or ex-partner? No 01/12/2025 AUDIT-C Answer Date Recorded Q1: How often do you have a drink containing alc ohol? Monthly or less 02/02/2025 Q2: How many drinks containi ng alcohol do you have on a typical day when you are drinking? 1 or 2 02/02/2025 Q3: How often do you have si x or more drinks on one occasion? Never 02/02/2025 Overall Financial Resource Strain (CARDIA) Answe r Date Recorded How hard is it for you to pa y for the very basics like food, housing, medical care, and heating? Not hard at all 01/12/2025 Hunger Vital Sign Answer Date Recorded Within the past 12 months, y ou worried that your food would run out before you got the money to buy more. Never true 03/02/20 25 Within the past 12 months, t he food you bought just didn't last and you didn't have money to get more. Never true 03/02/2025 Comments Unknown Sex and Gender Information Value Date Recorded Sex Assigned at Not on file Legal Sex Female 8:54 PM 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 Gender Identity Female 02/21/2022 4:52 AM CDT Sexual Orientation Straight 02/21/2022 4: 52 AM CDT Obstetrics History Para Term AB IAB SAB Ectopic Multiple Livin g Live Births 2 2 2 2 2 Date Outcome GA Total Labor Labor/2nd/3rd Weight Sex Type Anes PTL Della A1 A5 Name Clin Term Living 006 Term 40w 0d 3.685 kg (8 lb 2 oz) Living Delivery Location:[place] Last Filed Vital Signs Vital Sign Reading Time Taken Comments Blood Pressure 118/62 03/02/2025 8:47 AM CDT Pulse 62 03/02/2025 8:47 AM CDT Temperature 37.2 C (98.9 F) 06/19/2022 1:18 PM 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 Respiratory Rate 14 02/02/2025 8:22 AM CDT Oxygen Saturation 99% 03/02/2025 8:47 AM CDT Inhaled Oxygen Concentration - - Weight 102.2 kg (225 lb 4.8 oz) 03/02/2025 8:47 AM CDT Height 162.6 cm (5' 4) 03/02/2025 8:47 AM CDT Body Mass Index 38.67 03/02/2025 8:47 AM CDT Plan of Treatment Health Maintenance Due Date Last Done Comments Cervical Cancer Screening 1987 Depression Screening 1987 Hepatitis C Screening 1987 Regular Well Visit/Exam 18-64 2005 HPV Vaccines (2 - 3-dose series) 04/29/2007 04/01/2007 Varicella Vaccines (2 of 2 - 13+ 2-dose series) 01/08/2016 12/11/2015, 01/25/2015 Covid-19 Vaccine (3 - Pfizer risk series) 05/14/2021 04/16/2021, 03/27/2021 Influenza Vaccine (#1) 2025 04/25/2019, 2004 DTaP/Tdap/Td Vaccine (10 - Td or Tdap) 10/16/2030 10/16/2020, 12/28/2018, 12/28/2018, Additional history exists Hepatitis B Screening Completed 01/30/2016 , 01/25/2015, 09/09/1999, Additional history exists Pneumococcal vaccine <65 Aged Out No longer eligible based on patient's age to complete this topic Procedures Procedure Name Priority Date/Time Associated Diagnosis Comments US PELVIS COMPLETE Schedule Routine, Read Routine (OP Routine) 02/22/2025 8:17 AM CDT Abnormal uterine bleeding (AUB) from Last 3 Months Results * US Pelvis Complete (02/22/2025 8:17 AM CDT) Cul de Sac Free fluid visualized VIEWPOINT Endometrial Thickness 11.4 mm&millim eters VIEWPOINT Polyp(s) 48.0 mm&millim eters VIEWPOINT Anatomical Region Laterality Modality Pelvis N/A Ultrasound 02/22/2025 8:20 AM CDT Impressions 02/22/2025 11:55 AM CDT The uterus is anteverted and normal in size and morphology. The endometrial stripe measures 11.4 mm. There is a small anterior fibroid. There is a hyperechoic structure in the endometrium with discrete blood supply which is likely to be a polyp. Bilateral ovaries are larger than expected which can be seen sometimes with polycystic ovaries. There is a tiny right adnexal simple anechoic para-ovarian cyst, ORADS 2. There is a small amount of free fluid in the pelvis. Narrative Procedure Note Ami Beasley MD - 02/22/2025 IMPRESSION: The uterus is anteverted and normal in size and morphology. Theendometrial stripe measures 11.4 mm. There is a small anterior fibroid.There is a hyperechoic structure in the endometrium with discrete bloodsupply which is likely to be a polyp. Bilateral ovaries are larger thanexpected which can be seen sometimes with polycystic ovaries. There is atiny right adnexal simple anechoic para-ovarian cyst, ORADS 2. There is asmall amount of free fluid in the pelvis. us Caitlin Beasley DO IMG US PROCEDURES Final Result from Last 3 Months Insurance [facility] Care Teams .Net Architect Relationship Specialty Start Date End Date Robin Barron NP [address] [place] [address] DR [place], [place] [phone] PCP - General Family Medicine 10/13/23
[2025-04-26 13:26] LABS: Hematocrit 32.4 % (37.0-47.0); Hemoglobin 9.9 g/dL (12.0-15.0); Immature Granulocyte Percent A 0.3 % (0-0.5); Lymphocytes Absolute Auto 1.78 K/mm3 (0.9-3.2); Mean Corpuscular HGB Conc 30.6 g/dl (32-36); Mean Corpuscular Hemoglobin 26.0 pg (26-34); Mean Corpuscular Volume 85.0 fl (80-100); Nucleated Red Blood Cells Absolute Auto 0.000 K/mm3 (0.0-0.012); Nucleated Red Blood Cells Perc 0.0 % (0.0-0.2); Platelet Count Result 324 k/mm3 (150-375); Red Blood Count 3.81 M/mm3 (4.2-5.4); White Blood Count 6.9 K/mm3 (4.5-10.0)
[2025-04-26 16:57] LABS: Alanine Aminotransferase 30 U/L (6-35); Albumin Level 4.0 g/dL (3.5-5.1); Alkaline Phosphatase 68 U/L (38-126); Anion Gap 8 mmol/L (4-12); Aspartate Amino Transferase 67 U/L (14-36); Bilirubin,Total 0.4 mg/dL (0.2-1.3); Blood Urea Nitrogen 10 mg/dL (7-17); Calcium 8.6 mg/dL (8.4-10.2); Carbon Dioxide 23 mmol/L (22-30); Chloride 106 mmol/L (98-107); Estimated Glomerular Filt Rate > 60; Glucose 76 mg/dL (65-110); Potassium 4.6 mmol/L (3.4-5.0); Sodium 137 mmol/L (137-145); Total Protein 7.3 g/dL (6.3-8.2)
[2025-04-26 17:00] LABS: Iron 35 ug/dL (37-170)
[2025-04-26 17:13] LABS: Percent Iron Saturation 7 % (20-50)
[2025-04-26 17:42] LABS: Ferritin 5.92 ng/mL (6.24-137)
[2025-04-26 17:56] LABS: Vitamin B12 219.0 pg/mL (239-931)
== END 2025-04-26 12:25 | disposition home or self-care (01) ==
LOC: ANHLAB 12:25
PROVIDERS: Visit Provider Internal Medicine Hematology & Oncology
DX: D64.9 Anemia, unspecified (principal)
CPT/HCPCS: 36415; 80053; 82607; 82728; 82746; 83540; 83550; 85025